=== PATIENT | female | born 1960 | race Two or more races ===

== ENCOUNTER 2017-02-19 11:06 | Inpatient (IN) | payer MEDICAID ==
[~2017-02-19] VITALS: Ht 167.6 cm; Wt 111.6 kg
[~2017-02-19 11:06] MED LIST: ASPI81CH43; DENIES; LISI-646 PO; METF-370 PO; METO25TA5 PO; OMEP20CA74 PO
[2017-02-19] MEDS ORDERED: SODIUM CHLORIDE 0.9% 1,000 ML IV ONE (12:01)
[2017-02-19] MEDS ORDERED: cloNIDine HCL 0.1 MG TAB PO ONE (12:15)
[2017-02-19] MEDS ORDERED: ONDANSETRON HCL 4 MG/2 ML VIAL IV ONE (12:15)
[2017-02-19] MEDS ORDERED: MORPHINE SULFATE 4 MG/ML SYRG IV ONE (12:15)
[2017-02-19] MEDS ORDERED: ASPirin 81 mg TAB PO ONE (12:15)
[2017-02-19 13:24] LABS: Basophils # (auto) 0 uL; Basophils % (auto) 0.1 % (0.0-2.0); Eosinophils # (auto) 0.2 uL; Eosinophils % (auto) 1.3 % (0.0-7.0); Hemoglobin 13.3 g/dL (12.2-16.2); Lymphocytes # (auto) 0.9 uL; Lymphocytes % (auto) 7.3 % (10.0-50.0); Mean Corpuscular Hemoglobin 30.6 pg (28.0-32.0); Mean Corpuscular Hgb Conc. 34.2 g/dL (32.0-36.0); Mean Corpuscular Volume 89.7 fL (80.0-100.0); Mean Platelet Volume 9.1 fL (7.4-10.4); Monocytes # (auto) 0.5 uL; Neutrophils # (auto) 11.3 uL; Neutrophils % (auto) 87.3 % (37.0-80.0); Platelet Count (auto) 212 10^3/uL (140-450); Red Cell Distribution Width 14.1 % (11.6-16.0); White Blood Cell 12.9 10^3/uL (4.4-10.8)
[2017-02-19 13:39] LABS: Albumin 3.7 g/dL (3.4-5.0); BUN/Creatinine Ratio 21.6; Bilirubin, Total 0.6 mg/dL (0.2-1.0); Calcium 8.9 mg/dL (8.5-10.1); Potassium 3.7 mmol/L (3.5-5.1); Total Protein 7.6 g/dL (6.4-8.2)
[2017-02-19 13:40] LABS: INR 0.96 (0.9-1.15); Partial Thromboplastin Time 27.1 sec (22.64-33.71); Prothrombin Time 10.5 sec (9.37-12.3)
[2017-02-19] MEDS ORDERED: ENOXAPARIN SOD 100 MG/1 ML SYRINGE SC ONE (13:45)
[2017-02-19 14:04] LABS: B-Type Natriuretic Peptide 130.55 pg/mL (0-100); Temperature: 23.7 C (20.0-25.0)
[2017-02-19] MEDS ORDERED: cefTRIAXone 1GM/50ML D5W 50 ML IV ONE (14:30)
[2017-02-19] MEDS ORDERED: IOHEXOL 350 MG/ML 100ML IJ ONE (14:36)
[2017-02-19] MEDS: SODIUM CHLORIDE 0.9% 1,000 ML IV SCH (15:22)
[2017-02-19] MEDS ORDERED: DEXTROSE (50%) 50ML SYRG IV PRN (15:30)
[2017-02-19] MEDS ORDERED: LABETALOL HCL 5 MG/ML 4ML SYRINGE IV PRN (15:30)
[2017-02-19] MEDS ORDERED: TEMAZEPAM 15 MG CAP PO PRN (15:30)
[2017-02-19] MEDS ORDERED: LACTULOSE 20Gm/30ML SOLN PO PRN (15:30)
[2017-02-19] MEDS ORDERED: MORPHINE SULF INJ 2 MG/ML SYRINGE 1ML IV PRN (15:30)
[2017-02-19] MEDS ORDERED: ALBUTEROL SULF 2.5 MG/0.5ML(0.5%) NEB SOLN NEB PRN (15:30)
[2017-02-19] MEDS ORDERED: NITROGLYCERIN 0.4 MG SL TAB SL PRN (15:30)
[2017-02-19] MEDS ORDERED: ACETAMINOPHEN 500 MG TAB PO PRN (15:30)
[2017-02-19] MEDS ORDERED: NITROGLYCERIN 0.2MG/HR TOPICAL PATCH TD ONE (15:45)
[2017-02-19] MEDS ORDERED: PANTOPRAZOLE 40 MG TAB PO ONE (15:45)
[2017-02-19] MEDS: HYDROcodone-ACET 5/325MG TAB PO PRN (15:59)
[2017-02-19] MEDS: InsuLIN REG 1unit/0.01ml Soln (100units/ml) SC SCH ×2 (17:00→21:52)
[2017-02-19] MEDS: ACCU-CHEK COMFORT CURVE STRIP VI SCH ×2 (17:07→21:51)
[2017-02-19 18:10] VITALS: BP 163/99
[2017-02-19] MEDS: MORPHINE SULF INJ 2 MG/ML SYRINGE 1ML IV PRN ×2 (18:34→23:26)
[2017-02-19 20:44] LABS: Urine Bilirubin Negative (Negative); Urine Blood Negative /uL (Negative); Urine Color Yellow (Yellow); Urine Glucose Normal (Normal); Urine Ketone TRACE (Negative); Urine Mucus FEW (None Seen); Urine Nitrite Negative (Negative); Urine RBC 8 /hpf (0 - 4); Urine Squamous Epithelial Cell FEW /hpf (<5); Urine Urobilinogen Normal (Negative)
[2017-02-19 21:28] VITALS: BP 163/99
[2017-02-19] MEDS: ATORVASTATIN 20 MG TAB PO SCH (21:50)
[2017-02-19] MEDS: LISINOPRIL 20 MG TAB PO SCH (21:51)
[2017-02-19] MEDS: METOPROLOL TARTRATE 25 MG TAB PO SCH (21:51)
[2017-02-19 22:00] VITALS: BP 149/78
[2017-02-20] MEDS: HYDROcodone-ACET 5/325MG TAB PO PRN ×2 (03:06→16:14)
[2017-02-20] MEDS: MORPHINE SULF INJ 2 MG/ML SYRINGE 1ML IV PRN ×5 (04:30→21:59)
[2017-02-20 05:00] VITALS: BP 144/80
[2017-02-20] MEDS: SODIUM CHLORIDE 0.9% 1,000 ML IV SCH ×3 (05:38→15:16)
[2017-02-20] MEDS: InsuLIN REG 1unit/0.01ml Soln (100units/ml) SC SCH ×4 (06:41→22:00)
[2017-02-20] MEDS: ACCU-CHEK COMFORT CURVE STRIP VI SCH ×4 (06:41→22:07)
[2017-02-20 08:00] VITALS: BP 136/82
[2017-02-20 09:11] VITALS: BP 136/82
[2017-02-20] MEDS ORDERED: NITROGLYCERIN 0.2MG/HR TOPICAL PATCH TD SCH (10:00)
[2017-02-20] MEDS: ASPirin 81 mg TAB PO SCH (10:10)
[2017-02-20] MEDS: ENOXAPARIN SOD 40 MG/0.4 ML SYRINGE SC SCH (10:10)
[2017-02-20] MEDS: METOPROLOL TARTRATE 25 MG TAB PO SCH ×2 (10:11→21:57)
[2017-02-20] MEDS: PANTOPRAZOLE 40 MG TAB PO SCH (10:12)
[2017-02-20] MEDS: LISINOPRIL 20 MG TAB PO SCH ×2 (10:13→21:58)
[2017-02-20 13:00] VITALS: BP 135/77
[2017-02-20 17:08] VITALS: BP 154/86
[2017-02-20] MEDS: LORazepam 0.5 MG TAB PO PRN (21:57)
[2017-02-20] MEDS: ATORVASTATIN 20 MG TAB PO SCH (21:58)
[2017-02-20 22:08] VITALS: BP 160/96
[2017-02-21] VITALS (8 sets, daily range): BP systolic 150–204; BP diastolic 88–106
[2017-02-21] MEDS: MORPHINE SULF INJ 2 MG/ML SYRINGE 1ML IV PRN ×3 (03:03→22:34)
[2017-02-21] MEDS: LABETALOL HCL 5 MG/ML 4ML SYRINGE IV PRN ×3 (05:22→13:25)
[2017-02-21] MEDS: HYDROcodone-ACET 5/325MG TAB PO PRN (05:24)
[2017-02-21] MEDS: ACCU-CHEK COMFORT CURVE STRIP VI SCH ×4 (05:35→22:00)
[2017-02-21] MEDS: InsuLIN REG 1unit/0.01ml Soln (100units/ml) SC SCH ×4 (05:36→22:00)
[2017-02-21] MEDS: PROMETHAZINE HCL 25 MG/ML 1ML IV PRN ×3 (06:03→10:44)
[2017-02-21 07:15] LABS: Basophils # (auto) 0 uL; Basophils % (auto) 0.4 % (0.0-2.0); Eosinophils # (auto) 0.2 uL; Eosinophils % (auto) 3.5 % (0.0-7.0); Hematocrit 34.5 % (36.0-46.0); Hemoglobin 11.8 g/dL (12.2-16.2); Lymphocytes # (auto) 1.3 uL; Mean Corpuscular Hemoglobin 31.1 pg (28.0-32.0); Mean Corpuscular Hgb Conc. 34.3 g/dL (32.0-36.0); Mean Corpuscular Volume 90.9 fL (80.0-100.0); Mean Platelet Volume 9.7 fL (7.4-10.4); Monocytes # (auto) 0.4 uL; Monocytes % (auto) 6.3 % (0.0-12.0); Neutrophils # (auto) 5.1 uL; Neutrophils % (auto) 71.8 % (37.0-80.0); Platelet Count (auto) 177 10^3/uL (140-450); Red Cell Distribution Width 14.6 % (11.6-16.0)
[2017-02-21] MEDS: SODIUM CHLORIDE 0.9% 1,000 ML IV SCH (07:38)
[2017-02-21 07:59] LABS: B-Type Natriuretic Peptide 234.62 pg/mL (0-100); Temperature: 23.5 C (20.0-25.0)
[2017-02-21 08:06] LABS: BUN/Creatinine Ratio 21.7; Calcium 9.2 mg/dL (8.5-10.1); Magnesium 2.2 mg/dL (1.6-2.6); Potassium 4.1 mmol/L (3.5-5.1)
[2017-02-21] MEDS: PANTOPRAZOLE 40 MG TAB PO SCH (10:14)
[2017-02-21] MEDS: ASPirin 81 mg TAB PO SCH (10:14)
[2017-02-21] MEDS: ENOXAPARIN SOD 40 MG/0.4 ML SYRINGE SC SCH (10:14)
[2017-02-21] MEDS: LISINOPRIL 20 MG TAB PO SCH ×2 (10:31→22:33)
[2017-02-21] MEDS: METOPROLOL TARTRATE 25 MG TAB PO SCH ×2 (10:31→22:33)
[2017-02-21] MEDS: TRIAMTERENE/HCTZ 75/50MG TABLET PO SCH (11:42)
[2017-02-21] MEDS: LORazepam 0.5 MG TAB PO PRN (13:25)
[2017-02-21] MEDS ORDERED: DOCUSATE SOD 100 MG CAP PO ONE (14:15)
[2017-02-21] MEDS: cloNIDine HCL 0.1 MG TAB PO SCH ×2 (14:41→22:32)
[2017-02-21] MEDS ORDERED: METOPROLOL TARTRATE 50 MG TAB PO ONE (16:15)
[2017-02-21] MEDS: cloNIDine HCL 0.1 MG TAB PO PRN (18:39)
[2017-02-21] MEDS ORDERED: PRAMIPEXOLE DIHYDROCHLORIDE MO 0.25 MG TAB PO SCH (22:00)
[2017-02-21] MEDS: ATORVASTATIN 20 MG TAB PO SCH (22:31)
[2017-02-21] MEDS: DOCUSATE SOD 100 MG CAP PO SCH (22:32)
[2017-02-22] VITALS (8 sets, daily range): BP systolic 124–164; BP diastolic 74–84
[2017-02-22] MEDS: MORPHINE SULF INJ 2 MG/ML SYRINGE 1ML IV PRN ×4 (03:50→19:08)
[2017-02-22] MEDS: ACCU-CHEK COMFORT CURVE STRIP VI SCH ×4 (06:15→22:22)
[2017-02-22] MEDS: cloNIDine HCL 0.1 MG TAB PO SCH ×3 (06:15→22:21)
[2017-02-22 06:28] LABS: Potassium 3.9 mmol/L (3.5-5.1)
[2017-02-22 06:32] LABS: BUN/Creatinine Ratio 14.4; Calcium 9.5 mg/dL (8.5-10.1)
[2017-02-22] MEDS: InsuLIN REG 1unit/0.01ml Soln (100units/ml) SC SCH ×4 (06:33→22:22)
[2017-02-22] MEDS: ASPirin 81 mg TAB PO SCH (09:36)
[2017-02-22] MEDS: ENOXAPARIN SOD 40 MG/0.4 ML SYRINGE SC SCH (09:36)
[2017-02-22] MEDS: DOCUSATE SOD 100 MG CAP PO SCH ×2 (09:36→22:20)
[2017-02-22] MEDS: PANTOPRAZOLE 40 MG TAB PO SCH (09:36)
[2017-02-22] MEDS: TRIAMTERENE/HCTZ 75/50MG TABLET PO SCH (09:37)
[2017-02-22] MEDS: METOPROLOL TARTRATE 25 MG TAB PO SCH ×2 (09:38→22:22)
[2017-02-22] MEDS: LISINOPRIL 20 MG TAB PO SCH ×2 (09:39→22:21)
[2017-02-22] MEDS ORDERED: BISACODYL 10 MG RECT SUPP PR ONE (12:45)
[2017-02-22] MEDS: ATORVASTATIN 20 MG TAB PO SCH (22:20)
[2017-02-23] VITALS (7 sets, daily range): BP systolic 118–140; BP diastolic 69–84
[2017-02-23] MEDS: MORPHINE SULF INJ 2 MG/ML SYRINGE 1ML IV PRN ×5 (00:21→23:18)
[2017-02-23] MEDS: cloNIDine HCL 0.1 MG TAB PO SCH ×3 (06:25→22:06)
[2017-02-23] MEDS: ACCU-CHEK COMFORT CURVE STRIP VI SCH ×4 (06:25→22:06)
[2017-02-23] MEDS: InsuLIN REG 1unit/0.01ml Soln (100units/ml) SC SCH ×4 (06:25→22:07)
[2017-02-23] MEDS: DOCUSATE SOD 100 MG CAP PO SCH ×2 (09:47→22:05)
[2017-02-23] MEDS: PANTOPRAZOLE 40 MG TAB PO SCH (09:48)
[2017-02-23] MEDS: ASPirin 81 mg TAB PO SCH (09:48)
[2017-02-23] MEDS: ENOXAPARIN SOD 40 MG/0.4 ML SYRINGE SC SCH (09:48)
[2017-02-23] MEDS: METOPROLOL TARTRATE 25 MG TAB PO SCH ×2 (09:48→22:06)
[2017-02-23] MEDS: LISINOPRIL 20 MG TAB PO SCH ×2 (09:49→22:05)
[2017-02-23] MEDS: TRIAMTERENE/HCTZ 75/50MG TABLET PO SCH (09:50)
[2017-02-23] MEDS ORDERED: MEROPENEM 1GM IVPB 100 ML IV ONE (12:15)
[2017-02-23] MEDS ORDERED: GASTROGRAFIN 120 ML SOL ONE (12:37)
[2017-02-23] MEDS: ERTAPENEM 1GM IN NS 50 ML IV SCH (13:44)
[2017-02-23] MEDS: HYDROcodone-ACET 5/325MG TAB PO PRN (20:28)
[2017-02-23] MEDS ORDERED: MEROPENEM 1GM IVPB 100 ML IV SCH (22:00)
[2017-02-23] MEDS: ATORVASTATIN 20 MG TAB PO SCH (22:05)
[2017-02-24 05:40] VITALS: BP 121/76
[2017-02-24 05:59] LABS: Basophils # (auto) 0 uL; Basophils % (auto) 0.3 % (0.0-2.0); Eosinophils # (auto) 0.2 uL; Eosinophils % (auto) 4.3 % (0.0-7.0); Hematocrit 31.8 % (36.0-46.0); Hemoglobin 10.9 g/dL (12.2-16.2); Lymphocytes # (auto) 1.1 uL; Lymphocytes % (auto) 20.7 % (10.0-50.0); Mean Corpuscular Hemoglobin 31.4 pg (28.0-32.0); Mean Corpuscular Hgb Conc. 34.5 g/dL (32.0-36.0); Mean Corpuscular Volume 90.9 fL (80.0-100.0); Mean Platelet Volume 9.3 fL (7.4-10.4); Monocytes # (auto) 0.7 uL; Monocytes % (auto) 12.1 % (0.0-12.0); Neutrophils # (auto) 3.4 uL; Neutrophils % (auto) 62.6 % (37.0-80.0); Platelet Count (auto) 216 10^3/uL (140-450); Red Cell Distribution Width 13.9 % (11.6-16.0); White Blood Cell 5.5 10^3/uL (4.4-10.8)
[2017-02-24] MEDS: cloNIDine HCL 0.1 MG TAB PO SCH ×3 (06:14→22:31)
[2017-02-24] MEDS: ACCU-CHEK COMFORT CURVE STRIP VI SCH ×4 (06:14→22:00)
[2017-02-24] MEDS: MORPHINE SULF INJ 2 MG/ML SYRINGE 1ML IV PRN ×6 (06:14→22:30)
[2017-02-24] MEDS: InsuLIN REG 1unit/0.01ml Soln (100units/ml) SC SCH ×4 (06:15→22:00)
[2017-02-24 06:18] LABS: BUN/Creatinine Ratio 18.3; Calcium 8.9 mg/dL (8.5-10.1); Magnesium 1.9 mg/dL (1.6-2.6); Potassium 4.3 mmol/L (3.5-5.1)
[2017-02-24 08:00] VITALS: BP 145/85
[2017-02-24 09:00] VITALS: BP 145/85
[2017-02-24] MEDS: TRIAMTERENE/HCTZ 75/50MG TABLET PO SCH (10:31)
[2017-02-24] MEDS: METOPROLOL TARTRATE 25 MG TAB PO SCH ×2 (10:33→22:32)
[2017-02-24] MEDS: LISINOPRIL 20 MG TAB PO SCH ×2 (10:33→22:32)
[2017-02-24] MEDS: PANTOPRAZOLE 40 MG TAB PO SCH (10:34)
[2017-02-24] MEDS: DOCUSATE SOD 100 MG CAP PO SCH ×2 (10:34→22:00)
[2017-02-24] MEDS: ASPirin 81 mg TAB PO SCH (10:34)
[2017-02-24] MEDS: ENOXAPARIN SOD 40 MG/0.4 ML SYRINGE SC SCH (10:34)
[2017-02-24] MEDS ORDERED: MAGNESIUM SULFATE 1GM/100ML 100 ML IV ONE (10:45)
[2017-02-24] MEDS: SODIUM CHLORIDE 0.9% 1,000 ML IV SCH (10:45)
[2017-02-24 13:00] VITALS: BP 128/69
[2017-02-24] MEDS: ERTAPENEM 1GM IN NS 50 ML IV SCH (13:00)
[2017-02-24 22:00] VITALS: BP 156/86
[2017-02-24] MEDS: ATORVASTATIN 20 MG TAB PO SCH (22:30)
[2017-02-25] MEDS: SODIUM CHLORIDE 0.9% 1,000 ML IV SCH (03:28)
[2017-02-25] MEDS: MORPHINE SULF INJ 2 MG/ML SYRINGE 1ML IV PRN ×4 (03:28→18:55)
[2017-02-25 05:00] VITALS: BP 161/90
[2017-02-25] MEDS: ACCU-CHEK COMFORT CURVE STRIP VI SCH ×4 (05:07→21:46)
[2017-02-25] MEDS: cloNIDine HCL 0.1 MG TAB PO SCH ×3 (05:52→21:37)
[2017-02-25] MEDS: InsuLIN REG 1unit/0.01ml Soln (100units/ml) SC SCH ×4 (05:53→21:46)
[2017-02-25] MEDS: HYDROcodone-ACET 10/325MG TAB PO PRN ×2 (05:53→21:35)
[2017-02-25 06:01] LABS: Hematocrit 34.3 % (36.0-46.0); Hemoglobin 11.8 g/dL (12.2-16.2)
[2017-02-25 06:16] LABS: BUN/Creatinine Ratio 23.8; Calcium 9.1 mg/dL (8.5-10.1); Potassium 4.2 mmol/L (3.5-5.1)
[2017-02-25 07:00] VITALS: BP 165/92
[2017-02-25] MEDS: PANTOPRAZOLE 40 MG TAB PO SCH (09:45)
[2017-02-25] MEDS: LISINOPRIL 20 MG TAB PO SCH ×2 (09:46→21:36)
[2017-02-25] MEDS: ASPirin 81 mg TAB PO SCH (09:46)
[2017-02-25] MEDS: METOPROLOL TARTRATE 25 MG TAB PO SCH ×2 (09:46→21:35)
[2017-02-25] MEDS: DOCUSATE SOD 100 MG CAP PO SCH ×2 (09:47→09:52)
[2017-02-25] MEDS: ENOXAPARIN SOD 40 MG/0.4 ML SYRINGE SC SCH (09:49)
[2017-02-25 12:04] VITALS: BP 158/70
[2017-02-25] MEDS: ERTAPENEM 1GM IN NS 50 ML IV SCH (13:45)
[2017-02-25 16:40] VITALS: BP 155/84
[2017-02-25] MEDS: ATORVASTATIN 20 MG TAB PO SCH (21:36)
[2017-02-25 22:00] VITALS: BP 186/89
[2017-02-26 05:00] VITALS: BP 181/96
[2017-02-26] MEDS: cloNIDine HCL 0.1 MG TAB PO SCH ×3 (05:19→21:54)
[2017-02-26] MEDS: InsuLIN REG 1unit/0.01ml Soln (100units/ml) SC SCH ×4 (05:20→22:00)
[2017-02-26 06:17] LABS: Calcium 9.4 mg/dL (8.5-10.1); Magnesium 2.2 mg/dL (1.6-2.6); Potassium 3.8 mmol/L (3.5-5.1)
[2017-02-26 06:19] LABS: BUN/Creatinine Ratio 23.9
[2017-02-26] MEDS: ACCU-CHEK COMFORT CURVE STRIP VI SCH ×4 (07:00→21:55)
[2017-02-26 08:00] VITALS: BP 185/103
[2017-02-26] MEDS: DOCUSATE SOD 100 MG CAP PO SCH ×2 (09:48→21:54)
[2017-02-26 09:49] VITALS: BP 185/103
[2017-02-26] MEDS: ASPirin 81 mg TAB PO SCH (09:50)
[2017-02-26] MEDS: ENOXAPARIN SOD 40 MG/0.4 ML SYRINGE SC SCH (09:50)
[2017-02-26] MEDS: PANTOPRAZOLE 40 MG TAB PO SCH (09:50)
[2017-02-26] MEDS: LISINOPRIL 20 MG TAB PO SCH ×2 (09:52→21:55)
[2017-02-26] MEDS: METOPROLOL TARTRATE 25 MG TAB PO SCH ×2 (09:53→21:55)
[2017-02-26] MEDS ORDERED: PANT40T PO (10:34)
[2017-02-26] MEDS ORDERED: CLO01T PO (10:34)
[2017-02-26] MEDS ORDERED: LISI-646 PO (10:34)
[2017-02-26] MEDS ORDERED: SODIUM CHLORIDE 0.9% 1,000 ML IV SCH (10:45)
[2017-02-26] MEDS ORDERED: MET25T PO (10:46)
[2017-02-26] MEDS ORDERED: LIDOCAINE 1% HCL (LOCAL ANESTH.) INJ 20ML MDV ID ONE (11:15)
[2017-02-26] MEDS: ERTAPENEM 1GM IN NS 50 ML IV SCH (13:22)
[2017-02-26] MEDS: HYDROcodone-ACET 10/325MG TAB PO PRN ×2 (13:23→20:44)
[2017-02-26 17:44] VITALS: BP 175/96
[2017-02-26 20:00] VITALS: BP 183/90
[2017-02-26] MEDS: SODIUM CHLOR 0.9% PF (SALINE LOCK) 10ML VIAL IV SCH (21:53)
[2017-02-26 22:00] VITALS: BP 183/90
[2017-02-27] VITALS (9 sets, daily range): BP systolic 155–204; BP diastolic 73–109
[2017-02-27] MEDS: cloNIDine HCL 0.1 MG TAB PO PRN ×3 (00:11→07:30)
[2017-02-27] MEDS ORDERED: hydrALAZINE HCL 20 MG/ML VL IV ONE (03:15)
[2017-02-27] MEDS: cloNIDine HCL 0.1 MG TAB PO SCH ×3 (06:01→21:40)
[2017-02-27] MEDS: ACCU-CHEK COMFORT CURVE STRIP VI SCH ×4 (06:44→21:41)
[2017-02-27] MEDS: InsuLIN REG 1unit/0.01ml Soln (100units/ml) SC SCH ×4 (06:45→22:35)
[2017-02-27] MEDS ORDERED: hydrALAZINE HCL 25 MG TAB PO PRN (09:00)
[2017-02-27] MEDS: HYDROcodone-ACET 10/325MG TAB PO PRN ×2 (09:22→17:20)
[2017-02-27] MEDS: METOPROLOL TARTRATE 25 MG TAB PO SCH ×2 (10:00→21:41)
[2017-02-27] MEDS: DOCUSATE SOD 100 MG CAP PO SCH ×2 (10:00→21:40)
[2017-02-27] MEDS: ENOXAPARIN SOD 40 MG/0.4 ML SYRINGE SC SCH (10:02)
[2017-02-27] MEDS: ASPirin 81 mg TAB PO SCH (10:05)
[2017-02-27] MEDS: PANTOPRAZOLE 40 MG TAB PO SCH (10:05)
[2017-02-27] MEDS: LISINOPRIL 20 MG TAB PO SCH ×2 (10:06→21:40)
[2017-02-27] MEDS: SODIUM CHLOR 0.9% PF (SALINE LOCK) 10ML VIAL IV SCH ×2 (10:07→21:39)
[2017-02-27] MEDS: ERTAPENEM 1GM IN NS 50 ML IV SCH (13:52)
[2017-02-27] MEDS ORDERED: amLODIPine BESYLATE 5 MG TAB PO ONE (15:00)
[2017-02-27] MEDS: KETOROLAC TROMETH 30 MG/ML 1ML VIAL IV PRN (16:20)
[2017-02-27] MEDS: hydrALAZINE HCL 25 MG TAB PO SCH (21:39)
[2017-02-28] MEDS: HYDROcodone-ACET 10/325MG TAB PO PRN ×2 (04:10→10:38)
[2017-02-28 05:07] VITALS: BP 168/85
[2017-02-28] MEDS: cloNIDine HCL 0.1 MG TAB PO SCH ×3 (05:40→23:07)
[2017-02-28] MEDS: InsuLIN REG 1unit/0.01ml Soln (100units/ml) SC SCH ×4 (06:34→22:00)
[2017-02-28] MEDS: ACCU-CHEK COMFORT CURVE STRIP VI SCH ×4 (06:34→22:00)
[2017-02-28 08:00] VITALS: BP 117/63
[2017-02-28 09:30] VITALS: BP 117/63
[2017-02-28] MEDS: METOPROLOL TARTRATE 25 MG TAB PO SCH ×2 (10:00→22:00)
[2017-02-28] MEDS: DOCUSATE SOD 100 MG CAP PO SCH ×2 (10:00→23:07)
[2017-02-28] MEDS: SODIUM CHLOR 0.9% PF (SALINE LOCK) 10ML VIAL IV SCH ×2 (10:32→23:05)
[2017-02-28] MEDS: LISINOPRIL 20 MG TAB PO SCH ×2 (10:34→23:08)
[2017-02-28] MEDS: hydrALAZINE HCL 25 MG TAB PO SCH ×2 (10:35→23:06)
[2017-02-28] MEDS: ASPirin 81 mg TAB PO SCH (10:36)
[2017-02-28] MEDS: amLODIPine BESYLATE 5 MG TAB PO SCH (10:37)
[2017-02-28] MEDS: PANTOPRAZOLE 40 MG TAB PO SCH (10:38)
[2017-02-28] MEDS: ENOXAPARIN SOD 40 MG/0.4 ML SYRINGE SC SCH (10:42)
[2017-02-28 12:30] VITALS: BP 165/88
[2017-02-28 13:30] VITALS: BP 168/77
[2017-02-28] MEDS: ERTAPENEM 1GM IN NS 50 ML IV SCH (14:35)
[2017-02-28 17:00] VITALS: BP 163/84
[2017-02-28] MEDS: cloNIDine HCL 0.1 MG TAB PO PRN (17:26)
[2017-02-28] MEDS: KETOROLAC TROMETH 30 MG/ML 1ML VIAL IV PRN (17:26)
[2017-03-01 00:39] VITALS: BP 177/86
[2017-03-01 05:23] VITALS: BP 159/89
[2017-03-01] MEDS: cloNIDine HCL 0.1 MG TAB PO SCH ×3 (05:31→22:01)
[2017-03-01] MEDS: KETOROLAC TROMETH 30 MG/ML 1ML VIAL IV PRN ×2 (05:55→20:35)
[2017-03-01] MEDS: InsuLIN REG 1unit/0.01ml Soln (100units/ml) SC SCH ×4 (06:01→21:10)
[2017-03-01] MEDS: ACCU-CHEK COMFORT CURVE STRIP VI SCH ×4 (06:01→21:10)
[2017-03-01 08:00] VITALS: BP 155/88
[2017-03-01 09:00] VITALS: BP 157/81
[2017-03-01] MEDS: amLODIPine BESYLATE 5 MG TAB PO SCH (09:53)
[2017-03-01] MEDS: METOPROLOL TARTRATE 25 MG TAB PO SCH ×2 (09:53→22:00)
[2017-03-01] MEDS: DOCUSATE SOD 100 MG CAP PO SCH ×2 (09:54→22:01)
[2017-03-01] MEDS: hydrALAZINE HCL 25 MG TAB PO SCH ×2 (09:54→22:00)
[2017-03-01] MEDS: PANTOPRAZOLE 40 MG TAB PO SCH (09:54)
[2017-03-01] MEDS: HYDROcodone-ACET 10/325MG TAB PO PRN (09:54)
[2017-03-01] MEDS: ASPirin 81 mg TAB PO SCH (09:55)
[2017-03-01] MEDS: ENOXAPARIN SOD 40 MG/0.4 ML SYRINGE SC SCH (09:55)
[2017-03-01] MEDS: LISINOPRIL 20 MG TAB PO SCH ×2 (09:55→22:01)
[2017-03-01] MEDS: SODIUM CHLOR 0.9% PF (SALINE LOCK) 10ML VIAL IV SCH ×2 (10:00→22:00)
[2017-03-01] MEDS ORDERED: AML5T PO (10:51)
[2017-03-01] MEDS ORDERED: HYDR-2651 PO (10:51)
[2017-03-01] MEDS ORDERED: TEMAZEPAM 15 MG CAP PO PRN (11:00)
[2017-03-01] MEDS ORDERED: LORazepam 0.5 MG TAB PO PRN (11:00)
[2017-03-01] MEDS: ERTAPENEM 1GM IN NS 50 ML IV SCH (15:01)
[2017-03-01 17:29] VITALS: BP 146/76
[2017-03-01 22:29] VITALS: BP 178/90
[2017-03-02] MEDS: HYDROcodone-ACET 10/325MG TAB PO PRN ×2 (05:16→11:51)
[2017-03-02 05:31] VITALS: BP 162/86
[2017-03-02] MEDS: cloNIDine HCL 0.1 MG TAB PO SCH ×2 (05:37→14:28)
[2017-03-02] MEDS: InsuLIN REG 1unit/0.01ml Soln (100units/ml) SC SCH ×2 (06:13→11:39)
[2017-03-02] MEDS: ACCU-CHEK COMFORT CURVE STRIP VI SCH ×2 (06:14→11:38)
[2017-03-02 08:00] VITALS: BP_SYST 161; BP_DIAS 81; BP_DIAS 82
[2017-03-02] MEDS: SODIUM CHLOR 0.9% PF (SALINE LOCK) 10ML VIAL IV SCH (10:00)
[2017-03-02] MEDS ORDERED: ENOXAPARIN SOD 40 MG/0.4 ML SYRINGE SC SCH (10:00)
[2017-03-02] MEDS: LISINOPRIL 20 MG TAB PO SCH (11:00)
[2017-03-02] MEDS: hydrALAZINE HCL 25 MG TAB PO SCH (11:00)
[2017-03-02] MEDS: METOPROLOL TARTRATE 25 MG TAB PO SCH (11:01)
[2017-03-02] MEDS: PANTOPRAZOLE 40 MG TAB PO SCH (11:01)
[2017-03-02] MEDS: amLODIPine BESYLATE 5 MG TAB PO SCH (11:01)
[2017-03-02] MEDS: ASPirin 81 mg TAB PO SCH (11:02)
[2017-03-02] MEDS: DOCUSATE SOD 100 MG CAP PO SCH (11:02)
[2017-03-02 13:00] VITALS: BP 158/81
[2017-03-02] MEDS: ERTAPENEM 1GM IN NS 50 ML IV SCH (14:26)
== END 2017-03-02 15:45 | DRG 468 ==
LOC: EDBD 11:06 → ER 11:11 → TELE 11:12 → TELE-EAST 18:21
PROVIDERS: ADMIT Internal Medicine; ATTEND Internal Medicine
DX: I12.9 Hypertensive chronic kidney disease with stage 1 through stage 4 chronic kidney disease, or unspecified chronic kidney disease (principal); N17.0 Acute kidney failure with tubular necrosis; K56.60 Unspecified intestinal obstruction; E11.22 Type 2 diabetes mellitus with diabetic chronic kidney disease; E11.42 Type 2 diabetes mellitus with diabetic polyneuropathy; S22.42XA Multiple fractures of ribs, left side, initial encounter for closed fracture; N18.3 Chronic kidney disease, stage 3 (moderate); N39.0 Urinary tract infection, site not specified; R55 Syncope and collapse; J98.11 Atelectasis; S09.90XA Unspecified injury of head, initial encounter; R91.8 Other nonspecific abnormal finding of lung field; B96.20 Unspecified Escherichia coli [E. coli] as the cause of diseases classified elsewhere; I70.8 Atherosclerosis of other arteries; W19.XXXA Unspecified fall, initial encounter; G25.81 Restless legs syndrome; E86.0 Dehydration; E66.01 Morbid (severe) obesity due to excess calories; G47.00 Insomnia, unspecified; G57.11 Meralgia paresthetica, right lower limb; I25.10 Atherosclerotic heart disease of native coronary artery without angina pectoris; Z16.12 Extended spectrum beta lactamase (ESBL) resistance; Z68.39 Body mass index [BMI] 39.0-39.9, adult; Z83.3 Family history of diabetes mellitus; Z82.49 Family history of ischemic heart disease and other diseases of the circulatory system; Z85.038 Personal history of other malignant neoplasm of large intestine; Z90.710 Acquired absence of both cervix and uterus; Z81.1 Family history of alcohol abuse and dependence; Z71.89 Other specified counseling
CPT/HCPCS: 36415; 36569; 70450; 71010; 71020; 71250; 71275; 73060; 74176; 74250; 80048; 80053; 80061; 81001; 82550; 82607; 82728; 82962; 83036; 83540; 83550; 83735; 83880; 84443; 84484; 85014; 85018; 85025; 85379; 85610; 85730; 87086; 87088; 87186; 87493; 93005; 93306; 93886; 95819; 96361; 96365; 96372; 96375; 97110; 97116; 97163; 97530; 99291; J0696; J1335; J1815; J1885; J2185; J2405; J3490

== ENCOUNTER 2018-06-19 16:50 | Inpatient (IN) | payer MEDICAID ==
[~2018-06-19] VITALS: Ht 165.1 cm; Wt 97.7 kg
[~2018-06-19 16:50] MED LIST changes: +AML5T PO; +AMLO10TA12 PO; +ASP81EC PO; +ATOR20TA50 PO; +CAR125T PO; +CLO01T PO; -DENIES; +HCTZ25T PO; -METO25TA5 PO; +NITR100C44 PO; -OMEP20CA74 PO; +POTA8TAB2 PO
[2018-06-19 17:31] LABS: Basophils # (auto) 0.1 uL; Basophils % (auto) 0.6 % (0.0-2.0); Eosinophils # (auto) 0.3 uL; Eosinophils % (auto) 2.5 % (0.0-7.0); Hemoglobin 13.9 g/dL (12.2-16.2); Lymphocytes # (auto) 1.5 uL; Lymphocytes % (auto) 11.7 % (10.0-50.0); Mean Corpuscular Hemoglobin 30.9 pg (28.0-32.0); Mean Corpuscular Hgb Conc. 34.8 g/dL (32.0-36.0); Mean Corpuscular Volume 88.8 fL (80.0-100.0); Monocytes # (auto) 0.6 uL; Monocytes % (auto) 5.1 % (0.0-12.0); Neutrophils # (auto) 10.1 uL; Neutrophils % (auto) 80.1 % (37.0-80.0); Nucleated Red Blood Cells % 0.1 %; Platelet Count (auto) 158 10^3/uL (140-450); Red Cell Distribution Width 12.8 % (11.8-14.3); White Blood Cell 12.6 10^3/uL (4.4-10.8)
[2018-06-19 17:55] LABS: Albumin 3.8 g/dL (3.4-5.0); BUN/Creatinine Ratio 13.9; Bilirubin, Total 0.8 mg/dL (0.2-1.0); Calcium 8.5 mg/dL (8.5-10.1); Magnesium 2.2 mg/dL (1.6-2.6); Potassium 4.2 mmol/L (3.5-5.1); Total Protein 7.6 g/dL (6.4-8.2)
[2018-06-19 18:27] LABS: Urine Bacteria NONE SEEN /hpf (None Seen); Urine Blood Negative /uL (Negative); Urine Mucus FEW (None Seen); Urine Specific Gravity 1.006 (1.001-1.035); Urine WBC <1 /hpf (0 - 5)
[2018-06-19] MEDS ORDERED: MORPHINE SULFATE 4 MG/ML SYR/VIAL IV ONE (19:30)
[2018-06-19] MEDS ORDERED: ONDANSETRON HCL 4 MG/2 ML VIAL IV ONE (19:30)
[2018-06-19] MEDS ORDERED: ASPirin 81 mg TAB PO ONE (19:30)
[2018-06-19 20:39] LABS: INR 0.9 (0.9-1.15); Partial Thromboplastin Time 28.1 sec (23.78-33.04); Prothrombin Time 9.7 sec (9.27-12.13)
[2018-06-20] MEDS ORDERED: DEXTROSE (50%) 50ML SYRG IV PRN (03:15)
[2018-06-20] MEDS ORDERED: ONDANSETRON HCL 4 MG/2 ML VIAL IV PRN (03:15)
[2018-06-20] MEDS ORDERED: NITROGLYCERIN 0.4 MG SL TAB SL PRN (04:30)
[2018-06-20] MEDS ORDERED: MORPHINE SULFATE 4 MG/ML SYR/VIAL IV PRN (04:30)
[2018-06-20] MEDS: InsuLIN REG 1unit/0.01ml Soln (100units/ml) SC SCH ×4 (07:02→21:52)
[2018-06-20] MEDS: ACCU-CHEK COMFORT CURVE STRIP VI SCH ×4 (07:03→21:44)
[2018-06-20] MEDS: CARVEDILOL 12.5 MG TAB PO SCH ×2 (08:16→17:45)
[2018-06-20] MEDS: ISOSORBIDE MONONITRATE 60 MG TAB PO SCH (08:17)
[2018-06-20] MEDS: cloNIDine HCL 0.1 MG TAB PO SCH ×2 (08:17→21:44)
[2018-06-20 09:27] VITALS: BP 110/71
[2018-06-20] MEDS ORDERED: ASPirin-EC 325mg tab PO SCH (10:00)
[2018-06-20 13:06] VITALS: BP 125/69
[2018-06-20 16:58] VITALS: BP 129/77
[2018-06-20 19:22] LABS: Albumin 3.1 g/dL (3.4-5.0); Bilirubin, Total 0.3 mg/dL (0.2-1.0); Calcium 8.6 mg/dL (8.5-10.1); Potassium 4.2 mmol/L (3.5-5.1); Total Protein 6.8 g/dL (6.4-8.2)
[2018-06-20 19:26] LABS: Alcohol, Urine < 3.0 mg/dL (0-5); Amphetamine Screen, Urine NEGATIVE (NEGATIVE); Barbiturate Scree,Urine NEGATIVE (NEGATIVE); Benzodiazephine Screen, Urine NEGATIVE (NEGATIVE); Cannabinoid Screen, Urine NEGATIVE (NEGATIVE); Cocaine Screen, Urine NEGATIVE (NEGATIVE); Opiate Scree,Urine NEGATIVE (NEGATIVE); Phencyclidine Screen, Urine NEGATIVE (NEGATIVE)
[2018-06-20] MEDS: ACETAMINOPHEN 500 MG TAB PO PRN (19:47)
[2018-06-20 20:00] VITALS: BP 159/80
[2018-06-20] MEDS: ATORVASTATIN 20 MG TAB PO SCH (21:43)
[2018-06-20] MEDS ORDERED: ATORVASTATIN 20 MG TAB PO SCH (22:00)
[2018-06-20 22:13] VITALS: BP 159/80
[2018-06-21 05:32] VITALS: BP 149/84
[2018-06-21] MEDS: ACCU-CHEK COMFORT CURVE STRIP VI SCH ×4 (06:29→21:51)
[2018-06-21] MEDS: InsuLIN REG 1unit/0.01ml Soln (100units/ml) SC SCH ×4 (06:30→21:50)
[2018-06-21] MEDS: ACETAMINOPHEN 500 MG TAB PO PRN (06:58)
[2018-06-21 07:04] LABS: Basophils # (auto) 0 uL; Basophils % (auto) 0.5 % (0.0-2.0); Eosinophils # (auto) 0.3 uL; Hematocrit 38.8 % (36.0-46.0); Hemoglobin 13.4 g/dL (12.2-16.2); Lymphocytes # (auto) 1.5 uL; Lymphocytes % (auto) 15.7 % (10.0-50.0); Mean Corpuscular Hemoglobin 30.9 pg (28.0-32.0); Mean Corpuscular Hgb Conc. 34.6 g/dL (32.0-36.0); Mean Corpuscular Volume 89.2 fL (80.0-100.0); Monocytes # (auto) 0.6 uL; Monocytes % (auto) 6.9 % (0.0-12.0); Neutrophils # (auto) 6.9 uL; Neutrophils % (auto) 73.9 % (37.0-80.0); Nucleated Red Blood Cells % 0.1 %; Platelet Count (auto) 157 10^3/uL (140-450); Red Blood Cells 4.35 10^6/uL (4.0-5.20); White Blood Cell 9.4 10^3/uL (4.4-10.8)
[2018-06-21 07:21] LABS: BUN/Creatinine Ratio 18.5; Calcium 9.2 mg/dL (8.5-10.1); Potassium 4.4 mmol/L (3.5-5.1)
[2018-06-21] MEDS: CARVEDILOL 12.5 MG TAB PO SCH ×2 (08:25→17:25)
[2018-06-21 08:55] VITALS: BP 163/83
[2018-06-21] MEDS: amLODIPine BESYLATE 5 MG TAB PO SCH (09:53)
[2018-06-21] MEDS: ISOSORBIDE MONONITRATE 60 MG TAB PO SCH (09:53)
[2018-06-21] MEDS: ASPirin-EC 81 mg tab PO SCH (09:53)
[2018-06-21] MEDS: cloNIDine HCL 0.1 MG TAB PO SCH ×2 (09:54→21:50)
[2018-06-21] MEDS ORDERED: INSULIN LANTUS (GLARGINE) 1 /0.01ml (100units/ml) SC ONE (11:30)
[2018-06-21 12:47] VITALS: BP 128/74
[2018-06-21] MEDS ORDERED: BISACODYL 5 MG EC TAB PO ONE (13:30)
[2018-06-21 17:00] VITALS: BP 151/71
[2018-06-21] MEDS: ATORVASTATIN 20 MG TAB PO SCH (21:50)
[2018-06-21] MEDS: INSULIN LANTUS (GLARGINE) 1 /0.01ml (100units/ml) SC SCH (21:51)
[2018-06-21 22:00] VITALS: BP 150/80
[2018-06-22 05:00] VITALS: BP 155/85
[2018-06-22] MEDS: ACETAMINOPHEN 500 MG TAB PO PRN (05:53)
[2018-06-22 06:09] LABS: BUN/Creatinine Ratio 18.7; Calcium 9.3 mg/dL (8.5-10.1); Potassium 4.4 mmol/L (3.5-5.1)
[2018-06-22] MEDS: InsuLIN REG 1unit/0.01ml Soln (100units/ml) SC SCH ×2 (06:22→11:52)
[2018-06-22] MEDS: ACCU-CHEK COMFORT CURVE STRIP VI SCH ×2 (06:23→11:52)
[2018-06-22] MEDS: INSULIN LANTUS (GLARGINE) 1 /0.01ml (100units/ml) SC SCH (06:23)
[2018-06-22 09:00] VITALS: BP 160/89
[2018-06-22] MEDS: CARVEDILOL 12.5 MG TAB PO SCH ×2 (09:05→10:05)
[2018-06-22] MEDS ORDERED: hydrALAZINE HCL 25 MG TAB PO SCH (10:00)
[2018-06-22] MEDS: ISOSORBIDE MONONITRATE 60 MG TAB PO SCH (10:58)
[2018-06-22] MEDS: ASPirin-EC 81 mg tab PO SCH (10:58)
[2018-06-22] MEDS: amLODIPine BESYLATE 5 MG TAB PO SCH (10:59)
[2018-06-22 13:00] VITALS: BP 152/82
[2018-06-22] MEDS ORDERED: cloNIDine HCL 0.1 MG TAB PO SCH (14:00)
== END 2018-06-22 14:45 | disposition home or self-care (01) | DRG 199 ==
LOC: ER 16:50 → EDBD 16:50 → TELE 16:51 → TELE-WESTW 06-20 08:48
PROVIDERS: ADMIT Nurse Practitioner Family; ATTEND Internal Medicine
DX: I16.1 Hypertensive emergency (principal); E11.21 Type 2 diabetes mellitus with diabetic nephropathy; I24.9 Acute ischemic heart disease, unspecified; E87.1 Hypo-osmolality and hyponatremia; E11.65 Type 2 diabetes mellitus with hyperglycemia; E11.22 Type 2 diabetes mellitus with diabetic chronic kidney disease; I43 Cardiomyopathy in diseases classified elsewhere; I25.119 Atherosclerotic heart disease of native coronary artery with unspecified angina pectoris; I13.10 Hypertensive heart and chronic kidney disease without heart failure, with stage 1 through stage 4 chronic kidney disease, or unspecified chronic kidney disease; N18.3 Chronic kidney disease, stage 3 (moderate); F41.9 Anxiety disorder, unspecified; E66.9 Obesity, unspecified; Z68.35 Body mass index [BMI] 35.0-35.9, adult; Z90.49 Acquired absence of other specified parts of digestive tract; Z79.84 Long term (current) use of oral hypoglycemic drugs; Z82.49 Family history of ischemic heart disease and other diseases of the circulatory system; Z85.038 Personal history of other malignant neoplasm of large intestine; Z90.710 Acquired absence of both cervix and uterus; Z95.5 Presence of coronary angioplasty implant and graft; Z83.3 Family history of diabetes mellitus; I25.2 Old myocardial infarction
CPT/HCPCS: 36415; 70450; 71045; 80048; 80053; 80307; 81001; 82962; 83036; 83735; 83880; 84443; 84484; 85025; 85610; 85730; 87081; 93005; 93306; 94761; J1815

== ENCOUNTER 2020-07-19 14:38 | Emergency (ER) | payer MEDICAID ==
[~2020-07-19] VITALS: Ht 162.6 cm; Wt 81.6 kg
[~2020-07-19 14:38] MED LIST changes: -AMLO10TA12 PO; -ASP81EC PO; +ASPI-394 PO; -ASPI81CH43; -HCTZ25T PO; -LISI-646 PO; -METF-370 PO; -NITR100C44 PO; -POTA8TAB2 PO
[2020-07-19] MEDS ORDERED: KETOROLAC TROMETH 30 MG/ML 1ML VIAL IV ONE (15:00)
[2020-07-19] MEDS ORDERED: NIFEdipine 10 MG CAP PO ONE (16:45)
[2020-07-19] MEDS ORDERED: CARVEDILOL 12.5 MG TAB PO ONE (16:45)
[2020-07-19 17:48] VITALS: BP 169/93
== END 2020-07-19 17:54 | disposition home or self-care (01) ==
LOC: EDBD 14:38 → ER 14:38
DX: S16.1XXA Strain of muscle, fascia and tendon at neck level, initial encounter (principal); S60.221A Contusion of right hand, initial encounter; S80.01XA Contusion of right knee, initial encounter; E11.9 Type 2 diabetes mellitus without complications; I10 Essential (primary) hypertension; Z90.49 Acquired absence of other specified parts of digestive tract; Z90.710 Acquired absence of both cervix and uterus; V43.52XA Car driver injured in collision with other type car in traffic accident, initial encounter; Y93.89 Activity, other specified; Y92.89 Other specified places as the place of occurrence of the external cause; Y99.8 Other external cause status
CPT/HCPCS: 72125; 73130; 73562; 93005; 96374; 99285; J1885

== ENCOUNTER 2021-01-28 10:52 | Inpatient (IN) | payer MEDICAID ==
[~2021-01-28] VITALS: Ht 167.6 cm; Wt 95.3 kg
[2021-01-28 11:38] LABS: Basophils # (auto) 0.1 10 ^3/uL (0-0.2); Basophils % (auto) 0.7 % (0.0-2.0); Eosinophils # (auto) 0.3 10 ^3/uL (0-0.8); Eosinophils % (auto) 3.7 % (0.0-7.0); Hematocrit 40.4 % (36.0-46.0); Lymphocytes # (auto) 1.7 10 ^3/uL (0.4-5.4); Lymphocytes % (auto) 18.1 % (10.0-50.0); Mean Corpuscular Hemoglobin 30.4 pg (28.0-32.0); Mean Corpuscular Hgb Conc. 34.6 g/dL (32.0-36.0); Mean Corpuscular Volume 87.9 fL (80.0-100.0); Monocytes # (auto) 0.6 10 ^3/uL (0-1.3); Monocytes % (auto) 6.3 % (0.0-12.0); Neutrophils # (auto) 6.6 10 ^3/uL (1.6-8.6); Neutrophils % (auto) 71.2 % (37.0-80.0); Nucleated Red Blood Cells % 0.1 %; Platelet Count (auto) 221 10^3/uL (140-450); Red Cell Distribution Width 13.9 % (11.8-14.3); White Blood Cell 9.3 10^3/uL (4.4-10.8)
[2021-01-28 11:55] LABS: INR 0.98 (0.9-1.15); Partial Thromboplastin Time 26.2 sec (23.0-31.2)
[2021-01-28 11:57] LABS: Albumin 3.3 g/dL (3.4-5.0); Calcium 10.1 mg/dL (8.5-10.1)
[2021-01-28] MEDS ORDERED: hydrALAZINE HCL 20 MG/ML VL IV ONE (12:00)
[2021-01-28 12:02] LABS: BUN/Creatinine Ratio 20.8; Bilirubin, Total 0.4 mg/dL (0.2-1.0); Total Protein 7.5 g/dL (6.4-8.2)
[2021-01-28] MEDS ORDERED: POTASSIUM CHL 20 Meq TABLET PO ONE (12:45)
[2021-01-28] MEDS ORDERED: ASPirin-EC 81 mg tab PO ONE (12:45)
[2021-01-28 12:55] LABS: Urine Bacteria NONE SEEN /hpf (None Seen); Urine Blood Negative /uL (Negative); Urine Specific Gravity 1.004 (1.001-1.035); Urine WBC 1 /hpf (0 - 5)
[2021-01-28] MEDS ORDERED: MORPHINE SULF INJ 2 MG/ML SYRINGE 1ML IV PRN ×2 (13:30)
[2021-01-28] MEDS ORDERED: DEXTROSE (50%) 50ML SYRG IV PRN (13:30)
[2021-01-28] MEDS ORDERED: NITROGLYCERIN 0.4 MG SL TAB SL PRN (13:30)
[2021-01-28] MEDS ORDERED: ONDANSETRON HCL 4 MG/2 ML VIAL IV PRN (13:30)
[2021-01-28] MEDS ORDERED: ACETAMINOPHEN 500 MG TAB PO PRN (13:30)
[2021-01-28] MEDS ORDERED: IOHEXOL 350 MG/ML 100ML IJ ONE ×2 (13:34→15:54)
[2021-01-28] MEDS ORDERED: diphenhdrAMINE HCL 50 MG/1 ML VL IV ONE (15:13)
[2021-01-28] MEDS ORDERED: diphenhdrAMINE HCL 50 MG/1 ML VL ONE (15:21)
[2021-01-28] MEDS ORDERED: methylPREDNISolone SOD SUCC 125 MG/2 ML VL ONE ×2 (15:21→15:24)
[2021-01-28] MEDS: InsuLIN REG 1unit/0.01ml Soln (100units/ml) SC SCH ×2 (17:00→21:30)
[2021-01-28] MEDS: ACCU-CHEK COMFORT CURVE STRIP VI SCH ×2 (17:00→21:28)
[2021-01-28] MEDS: ATORVASTATIN 20 MG TAB PO SCH (21:28)
[2021-01-28] MEDS: METOPROLOL TARTRATE 25 MG TAB PO SCH (21:28)
[2021-01-28] MEDS: hydrALAZINE HCL 20 MG/ML VL IV PRN (21:46)
[2021-01-29 06:06] LABS: Basophils # (auto) 0 10 ^3/uL (0-0.2); Basophils % (auto) 0.2 % (0.0-2.0); Eosinophils # (auto) 0 10 ^3/uL (0-0.8); Hematocrit 44.1 % (36.0-46.0); Hemoglobin 15.9 g/dL (12.2-16.2); Lymphocytes # (auto) 1.1 10 ^3/uL (0.4-5.4); Lymphocytes % (auto) 9.7 % (10.0-50.0); Mean Corpuscular Hemoglobin 31.8 pg (28.0-32.0); Mean Corpuscular Hgb Conc. 36.1 g/dL (32.0-36.0); Monocytes # (auto) 0.1 10 ^3/uL (0-1.3); Monocytes % (auto) 0.8 % (0.0-12.0); Neutrophils # (auto) 9.7 10 ^3/uL (1.6-8.6); Neutrophils % (auto) 89.3 % (37.0-80.0); Nucleated Red Blood Cells % 0.1 %; Platelet Count (auto) 271 10^3/uL (140-450); Red Blood Cells 5.01 10^6/uL (4.0-5.20); Red Cell Distribution Width 14.5 % (11.8-14.3); White Blood Cell 10.8 10^3/uL (4.4-10.8)
[2021-01-29 06:18] LABS: Calcium 10.6 mg/dL (8.5-10.1); Magnesium 2.3 mg/dL (1.6-2.6); Potassium 3.2 mmol/L (3.5-5.1)
[2021-01-29 06:23] LABS: BUN/Creatinine Ratio 20.8; INR 0.98 (0.9-1.15); Partial Thromboplastin Time 26.7 sec (23.0-31.2)
[2021-01-29] MEDS: ACCU-CHEK COMFORT CURVE STRIP VI SCH ×4 (06:51→22:00)
[2021-01-29] MEDS: InsuLIN REG 1unit/0.01ml Soln (100units/ml) SC SCH ×4 (06:52→23:59)
[2021-01-29] MEDS: hydrALAZINE HCL 20 MG/ML VL IV PRN (09:12)
[2021-01-29] MEDS: ASPirin-EC 81 mg tab PO SCH (09:26)
[2021-01-29] MEDS: METOPROLOL TARTRATE 25 MG TAB PO SCH (09:26)
[2021-01-29] MEDS: LISINOPRIL 20 MG TAB PO SCH (09:27)
[2021-01-29] MEDS ORDERED: FAMOTIDINE 20 MG TAB PO SCH (10:00)
[2021-01-29] MEDS: METOPROLOL TARTRATE 50 MG TAB PO SCH ×2 (10:54→22:00)
[2021-01-29] MEDS ORDERED: NICOTINE 14 MG/24HR TOPICAL PATCH TD ONE (12:15)
[2021-01-29] MEDS: cloNIDine HCL 0.1 MG TAB PO PRN (13:16)
[2021-01-29] MEDS ORDERED: ISOSORBIDE MONONITRATE ER 60 MG TAB PO ONE (14:00)
[2021-01-29] MEDS ORDERED: NITROGLYCERIN 0.4 MG SL TAB SL PRN (16:00)
[2021-01-29] MEDS ORDERED: LORazepam 2MG/ML-1ML VIAL IV PRN (19:45)
[2021-01-29 20:06] LABS: Cholesterol 235 mg/dL (< 200)
[2021-01-29 20:09] LABS: HDL Cholesterol 103 mg/dL (40-59); LDL Cholesterol 110 mg/dL (< 100); Triglycerides 57 mg/dL (< 150)
[2021-01-29] MEDS: ATORVASTATIN 20 MG TAB PO SCH (23:10)
[2021-01-30] VITALS (8 sets, daily range): BP systolic 144–172; BP diastolic 72–94
[2021-01-30] MEDS: hydrALAZINE HCL 20 MG/ML VL IV PRN ×2 (06:08→15:40)
[2021-01-30] MEDS: ACCU-CHEK COMFORT CURVE STRIP VI SCH ×4 (06:10→21:30)
[2021-01-30] MEDS: InsuLIN REG 1unit/0.01ml Soln (100units/ml) SC SCH ×4 (06:10→21:35)
[2021-01-30] MEDS ORDERED: ISOSORBIDE MONONITRATE ER 60 MG TAB PO SCH (10:00)
[2021-01-30] MEDS: LISINOPRIL 20 MG TAB PO SCH (10:11)
[2021-01-30] MEDS: FAMOTIDINE 20 MG TAB PO SCH (10:12)
[2021-01-30] MEDS: ASPirin-EC 81 mg tab PO SCH (10:13)
[2021-01-30] MEDS: METOPROLOL TARTRATE 50 MG TAB PO SCH ×2 (10:13→21:29)
[2021-01-30] MEDS: cloNIDine HCL 0.1 MG TAB PO PRN (12:59)
[2021-01-30] MEDS: hydrALAZINE HCL 25 MG TAB PO SCH ×2 (18:04→21:29)
[2021-01-30] MEDS: ATORVASTATIN 20 MG TAB PO SCH (21:29)
[2021-01-31] MEDS: hydrALAZINE HCL 25 MG TAB PO SCH ×6 (02:05→22:00)
[2021-01-31 05:00] VITALS: BP 173/98
[2021-01-31 05:43] LABS: Basophils # (auto) 0 10 ^3/uL (0-0.2); Basophils % (auto) 0.4 % (0.0-2.0); Eosinophils # (auto) 0.3 10 ^3/uL (0-0.8); Eosinophils % (auto) 2.7 % (0.0-7.0); Hematocrit 40.5 % (36.0-46.0); Hemoglobin 13.9 g/dL (12.2-16.2); Lymphocytes # (auto) 3.4 10 ^3/uL (0.4-5.4); Lymphocytes % (auto) 29.8 % (10.0-50.0); Mean Corpuscular Hemoglobin 30.6 pg (28.0-32.0); Mean Corpuscular Hgb Conc. 34.3 g/dL (32.0-36.0); Mean Corpuscular Volume 89.3 fL (80.0-100.0); Monocytes # (auto) 0.8 10 ^3/uL (0-1.3); Monocytes % (auto) 6.8 % (0.0-12.0); Neutrophils # (auto) 6.8 10 ^3/uL (1.6-8.6); Neutrophils % (auto) 60.3 % (37.0-80.0); Nucleated Red Blood Cells % 0.2 %; Platelet Count (auto) 228 10^3/uL (140-450); Red Blood Cells 4.53 10^6/uL (4.0-5.20); Red Cell Distribution Width 14.2 % (11.8-14.3); White Blood Cell 11.3 10^3/uL (4.4-10.8)
[2021-01-31] MEDS: ACCU-CHEK COMFORT CURVE STRIP VI SCH ×4 (05:45→22:13)
[2021-01-31] MEDS: InsuLIN REG 1unit/0.01ml Soln (100units/ml) SC SCH ×4 (06:00→22:17)
[2021-01-31 06:02] LABS: BUN/Creatinine Ratio 26.7; Calcium 9.5 mg/dL (8.5-10.1); Potassium 3.5 mmol/L (3.5-5.1)
[2021-01-31 06:17] LABS: INR 0.95 (0.9-1.15); Partial Thromboplastin Time 24.2 sec (23.0-31.2)
[2021-01-31] MEDS: FAMOTIDINE 20 MG TAB PO SCH (08:46)
[2021-01-31] MEDS: ASPirin-EC 81 mg tab PO SCH (08:46)
[2021-01-31] MEDS: CLOPIDOGREL BISULFATE 75 MG TAB PO SCH (08:47)
[2021-01-31] MEDS: LISINOPRIL 20 MG TAB PO SCH (08:48)
[2021-01-31 08:52] VITALS: BP 183/87
[2021-01-31] MEDS: METOPROLOL TARTRATE 50 MG TAB PO SCH ×2 (10:00→22:00)
[2021-01-31] MEDS ORDERED: ISOSORBIDE MONONITRATE ER 60 MG TAB PO SCH (10:00)
[2021-01-31] MEDS: cloNIDine HCL 0.1 MG TAB PO PRN (12:40)
[2021-01-31 13:00] VITALS: BP 195/88
[2021-01-31] MEDS ORDERED: IODIXANOL 320MG/ML 100ML BTL IV ONE (13:30)
[2021-01-31] MEDS ORDERED: LIDOCAINE 2%HCL (LOCAL ANESTH.) INJ 20ML MDV ONE (13:30)
[2021-01-31] MEDS ORDERED: fentaNYL CITRATE 100 MCG/2 ML VL ONE (13:39)
[2021-01-31] MEDS ORDERED: ANGIOMAX 250 MG VIAL IV ONE (13:39)
[2021-01-31] MEDS ORDERED: SODIUM CHL 0.9% 0 ML ONE (13:39)
[2021-01-31] MEDS ORDERED: MIDAZOLAM HCL 1MG/1ML-2 ML VIAL ONE (13:39)
[2021-01-31 17:00] VITALS: BP 148/75
[2021-01-31 21:46] VITALS: BP 165/81
[2021-01-31] MEDS: ATORVASTATIN 20 MG TAB PO SCH (22:00)
[2021-01-31] MEDS: hydrALAZINE HCL 20 MG/ML VL IV PRN (22:29)
[2021-02-01] MEDS: hydrALAZINE HCL 25 MG TAB PO SCH ×6 (02:00→22:04)
[2021-02-01] MEDS: hydrALAZINE HCL 20 MG/ML VL IV PRN ×2 (02:42→06:43)
[2021-02-01 04:24] VITALS: BP 165/86
[2021-02-01] MEDS: ACCU-CHEK COMFORT CURVE STRIP VI SCH ×4 (05:39→22:05)
[2021-02-01] MEDS: InsuLIN REG 1unit/0.01ml Soln (100units/ml) SC SCH ×4 (05:39→22:06)
[2021-02-01] MEDS: ASPirin-EC 81 mg tab PO SCH (08:59)
[2021-02-01 09:00] VITALS: BP 186/93
[2021-02-01] MEDS: HCTZ 25 MG TAB PO SCH (09:00)
[2021-02-01] MEDS: FAMOTIDINE 20 MG TAB PO SCH (09:01)
[2021-02-01] MEDS: amLODIPine BESYLATE 5 MG TAB PO SCH (09:01)
[2021-02-01] MEDS: METOPROLOL TARTRATE 50 MG TAB PO SCH ×2 (09:01→22:04)
[2021-02-01] MEDS: CLOPIDOGREL BISULFATE 75 MG TAB PO SCH (09:02)
[2021-02-01] MEDS: LISINOPRIL 20 MG TAB PO SCH (09:02)
[2021-02-01] MEDS: cloNIDine HCL 0.1 MG TAB PO PRN (11:49)
[2021-02-01 13:00] VITALS: BP 127/73
[2021-02-01] MEDS: HYDROcodone-ACET 5/325MG TAB PO PRN (16:31)
[2021-02-01 17:00] VITALS: BP 168/86
[2021-02-01 21:18] VITALS: BP 140/81
[2021-02-01] MEDS: ATORVASTATIN 20 MG TAB PO SCH ×2 (22:00→22:04)
[2021-02-02] MEDS: hydrALAZINE HCL 25 MG TAB PO SCH ×6 (02:52→21:56)
[2021-02-02 05:00] VITALS: BP 141/90
[2021-02-02] MEDS: ACCU-CHEK COMFORT CURVE STRIP VI SCH ×4 (06:30→21:56)
[2021-02-02] MEDS: InsuLIN REG 1unit/0.01ml Soln (100units/ml) SC SCH ×4 (06:30→22:04)
[2021-02-02] MEDS: ASPirin-EC 81 mg tab PO SCH (08:08)
[2021-02-02] MEDS: HCTZ 25 MG TAB PO SCH (08:09)
[2021-02-02] MEDS: METOPROLOL TARTRATE 50 MG TAB PO SCH ×2 (08:09→21:56)
[2021-02-02] MEDS: FAMOTIDINE 20 MG TAB PO SCH (08:10)
[2021-02-02] MEDS: amLODIPine BESYLATE 5 MG TAB PO SCH (08:10)
[2021-02-02] MEDS: LISINOPRIL 20 MG TAB PO SCH (08:10)
[2021-02-02] MEDS: CLOPIDOGREL BISULFATE 75 MG TAB PO SCH (08:10)
[2021-02-02 09:04] VITALS: BP 195/102
[2021-02-02] MEDS: cloNIDine HCL 0.1 MG TAB PO PRN ×2 (09:08→18:10)
[2021-02-02] MEDS: hydrALAZINE HCL 20 MG/ML VL IV PRN (10:21)
[2021-02-02 13:09] VITALS: BP 145/80
[2021-02-02] MEDS: HYDROcodone-ACET 5/325MG TAB PO PRN (14:16)
[2021-02-02 17:04] VITALS: BP 145/81
[2021-02-02] MEDS: ATORVASTATIN 20 MG TAB PO SCH (21:56)
[2021-02-02 22:05] VITALS: BP_SYST 145; BP_DIAS 52; BP_DIAS 82
[2021-02-03] MEDS: hydrALAZINE HCL 25 MG TAB PO SCH ×7 (02:00→22:37)
[2021-02-03 04:46] VITALS: BP 159/85
[2021-02-03] MEDS: ACCU-CHEK COMFORT CURVE STRIP VI SCH ×4 (06:29→20:47)
[2021-02-03] MEDS: InsuLIN REG 1unit/0.01ml Soln (100units/ml) SC SCH ×4 (06:29→22:00)
[2021-02-03 08:54] VITALS: BP 163/76
[2021-02-03] MEDS: ASPirin-EC 81 mg tab PO SCH (09:31)
[2021-02-03] MEDS: HCTZ 25 MG TAB PO SCH (09:32)
[2021-02-03] MEDS: LISINOPRIL 20 MG TAB PO SCH (09:33)
[2021-02-03] MEDS: METOPROLOL TARTRATE 50 MG TAB PO SCH ×2 (09:35→22:37)
[2021-02-03] MEDS: amLODIPine BESYLATE 5 MG TAB PO SCH (09:35)
[2021-02-03] MEDS: CLOPIDOGREL BISULFATE 75 MG TAB PO SCH (09:35)
[2021-02-03] MEDS: FAMOTIDINE 20 MG TAB PO SCH (09:35)
[2021-02-03 12:41] VITALS: BP 156/83
[2021-02-03 17:02] VITALS: BP 156/90
[2021-02-03] MEDS: HYDROcodone-ACET 5/325MG TAB PO PRN (20:56)
[2021-02-03] MEDS: LORazepam 0.5 MG TAB PO SCH (20:57)
[2021-02-03 22:00] VITALS: BP 158/94
[2021-02-03] MEDS: ATORVASTATIN 20 MG TAB PO SCH (22:36)
[2021-02-03] MEDS: MINOXIDIL 2.5 MG TAB PO SCH (22:38)
[2021-02-04 05:00] VITALS: BP 155/85
[2021-02-04] MEDS: hydrALAZINE HCL 25 MG TAB PO SCH ×5 (05:58→21:23)
[2021-02-04] MEDS: InsuLIN REG 1unit/0.01ml Soln (100units/ml) SC SCH ×4 (06:26→21:49)
[2021-02-04] MEDS: ACCU-CHEK COMFORT CURVE STRIP VI SCH ×4 (06:28→21:49)
[2021-02-04 07:52] VITALS: BP 160/97
[2021-02-04] MEDS: ASPirin-EC 81 mg tab PO SCH (08:28)
[2021-02-04] MEDS: METOPROLOL TARTRATE 50 MG TAB PO SCH ×2 (08:28→21:24)
[2021-02-04] MEDS: MINOXIDIL 2.5 MG TAB PO SCH ×2 (08:29→21:23)
[2021-02-04] MEDS: amLODIPine BESYLATE 5 MG TAB PO SCH (08:29)
[2021-02-04] MEDS: LOSARTAN POTASSIUM 50 MG TAB PO SCH (08:29)
[2021-02-04] MEDS: CLOPIDOGREL BISULFATE 75 MG TAB PO SCH (08:30)
[2021-02-04] MEDS: HCTZ 25 MG TAB PO SCH (08:30)
[2021-02-04] MEDS: FAMOTIDINE 20 MG TAB PO SCH (08:34)
[2021-02-04] MEDS: cloNIDine HCL 0.1 MG TAB PO PRN (09:48)
[2021-02-04] MEDS: LORazepam 0.5 MG TAB PO SCH ×2 (11:05→21:22)
[2021-02-04] MEDS: SERTRALINE HCL 50 MG TAB PO SCH (11:05)
[2021-02-04 11:10] VITALS: BP 164/92
[2021-02-04] MEDS: hydrALAZINE HCL 20 MG/ML VL IV PRN (12:57)
[2021-02-04 17:00] VITALS: BP 153/75
[2021-02-04] MEDS: ATORVASTATIN 20 MG TAB PO SCH (21:12)
[2021-02-04 22:00] VITALS: BP 140/76
[2021-02-05] MEDS: hydrALAZINE HCL 25 MG TAB PO SCH ×3 (02:13→09:55)
[2021-02-05 05:00] VITALS: BP 146/78
[2021-02-05] MEDS: InsuLIN REG 1unit/0.01ml Soln (100units/ml) SC SCH ×2 (06:23→13:01)
[2021-02-05] MEDS: ACCU-CHEK COMFORT CURVE STRIP VI SCH ×2 (06:23→13:00)
[2021-02-05 09:00] VITALS: BP 150/80
[2021-02-05] MEDS: ASPirin-EC 81 mg tab PO SCH (09:55)
[2021-02-05] MEDS: LOSARTAN POTASSIUM 50 MG TAB PO SCH (09:55)
[2021-02-05] MEDS: HCTZ 25 MG TAB PO SCH (09:55)
[2021-02-05] MEDS: MINOXIDIL 2.5 MG TAB PO SCH (09:56)
[2021-02-05] MEDS: METOPROLOL TARTRATE 50 MG TAB PO SCH (10:01)
[2021-02-05] MEDS: amLODIPine BESYLATE 5 MG TAB PO SCH (10:01)
[2021-02-05] MEDS: CLOPIDOGREL BISULFATE 75 MG TAB PO SCH (10:02)
[2021-02-05] MEDS: FAMOTIDINE 20 MG TAB PO SCH (10:02)
[2021-02-05] MEDS: SERTRALINE HCL 50 MG TAB PO SCH (10:02)
[2021-02-05 10:20] VITALS: BP 150/80
[2021-02-05 12:55] VITALS: BP 126/86
== END 2021-02-05 14:00 | disposition home health service (06) | DRG 45 ==
LOC: ER 10:52 → TELE 13:18 → TELE-EAST 01-30 01:55
PROVIDERS: ADMIT Nurse Practitioner Acute Care; ATTEND Family Medicine
PROC: B410YZZ Fluoroscopy of Abdominal Aorta using Other Contrast (ICD-10-PCS; principal; 2021-01-31)
PROC: B418YZZ Fluoroscopy of Bilateral Renal Arteries using Other Contrast (ICD-10-PCS; 2021-01-31)
DX: I63.81 Other cerebral infarction due to occlusion or stenosis of small artery (principal); I21.4 Non-ST elevation (NSTEMI) myocardial infarction; N18.31 Chronic kidney disease, stage 3a; I16.9 Hypertensive crisis, unspecified; G81.94 Hemiplegia, unspecified affecting left nondominant side; E87.6 Hypokalemia; Z20.822 Contact with and (suspected) exposure to COVID-19; E11.9 Type 2 diabetes mellitus without complications; I12.9 Hypertensive chronic kidney disease with stage 1 through stage 4 chronic kidney disease, or unspecified chronic kidney disease; F17.210 Nicotine dependence, cigarettes, uncomplicated; E78.5 Hyperlipidemia, unspecified; E66.9 Obesity, unspecified; F32.9 Major depressive disorder, single episode, unspecified; Z90.49 Acquired absence of other specified parts of digestive tract; Z90.710 Acquired absence of both cervix and uterus; Z85.9 Personal history of malignant neoplasm, unspecified; Z79.82 Long term (current) use of aspirin; Z79.899 Other long term (current) drug therapy; Z79.891 Long term (current) use of opiate analgesic; Z79.01 Long term (current) use of anticoagulants; Z81.1 Family history of alcohol abuse and dependence; Z80.9 Family history of malignant neoplasm, unspecified; Z82.49 Family history of ischemic heart disease and other diseases of the circulatory system; Z79.84 Long term (current) use of oral hypoglycemic drugs
CPT/HCPCS: 36415; 70450; 70551; 71045; 74175; 80048; 80053; 80061; 81001; 82533; 82962; 83036; 83735; 84132; 84443; 84484; 85025; 85610; 85730; 86141; 87426; 93005; 93306; 93886; 93975; 94660; 96374; 96375; 97110; 97116; 97530; 99152; G0378; J1815; J2250; Q9967

== ENCOUNTER 2021-06-25 12:31 | Inpatient (IN) | payer MEDICAID ==
[~2021-06-25] VITALS: Ht 167.6 cm; Wt 95.0 kg
[2021-06-25] MEDS ORDERED: MORPHINE SULFATE INJECTION 2 MG/ML SYRG ONE (13:42)
[2021-06-25] MEDS ORDERED: ONDANSETRON HCL 4 MG/2 ML VIAL ONE (13:43)
[2021-06-25] MEDS ORDERED: ONDANSETRON HCL 4 MG/2 ML VIAL IV ONE (13:45)
[2021-06-25] MEDS ORDERED: MORPHINE SULFATE INJECTION 2 MG/ML SYRG IV ONE (13:45)
[2021-06-25] MEDS ORDERED: cloNIDine HCL 0.1 MG TAB ONE (15:03)
[2021-06-25] MEDS ORDERED: cloNIDine HCL 0.1 MG TAB PO ONE (15:15)
[2021-06-25 15:31] LABS: Basophils # (auto) 0.1 10 ^3/uL (0-0.2); Basophils % (auto) 0.5 % (0.0-2.0); Eosinophils # (auto) 0.5 10 ^3/uL (0-0.8); Eosinophils % (auto) 4.3 % (0.0-7.0); Hematocrit 40.8 % (36.0-46.0); Hemoglobin 14.4 g/dL (12.2-16.2); Lymphocytes # (auto) 1.8 10 ^3/uL (0.4-5.4); Lymphocytes % (auto) 14.3 % (10.0-50.0); Mean Corpuscular Hgb Conc. 35.2 g/dL (32.0-36.0); Mean Corpuscular Volume 85.3 fL (80.0-100.0); Monocytes # (auto) 0.8 10 ^3/uL (0-1.3); Monocytes % (auto) 6.4 % (0.0-12.0); Neutrophils # (auto) 9.4 10 ^3/uL (1.6-8.6); Neutrophils % (auto) 74.5 % (37.0-80.0); Nucleated Red Blood Cells % 0.1 %; Red Blood Cells 4.79 10^6/uL (4.0-5.20); Red Cell Distribution Width 12.5 % (11.8-14.3); White Blood Cell 12.6 10^3/uL (4.4-10.8)
[2021-06-25 15:48] LABS: INR 0.93 (0.9-1.15); Partial Thromboplastin Time 26.3 sec (23.6-33.0)
[2021-06-25 15:51] LABS: Albumin 3.3 g/dL (3.4-5.0); BUN/Creatinine Ratio 16.2; Magnesium 2.1 mg/dL (1.6-2.6); Potassium 3.2 mmol/L (3.5-5.1)
[2021-06-25 15:56] LABS: Bilirubin, Total 0.3 mg/dL (0.2-1.0); Total Protein 7.5 g/dL (6.4-8.2)
[2021-06-25 16:15] LABS: Urine Bacteria NONE SEEN /hpf (None Seen); Urine Blood Negative /uL (Negative); Urine Specific Gravity 1.006 (1.001-1.035); Urine WBC 2 /hpf (0 - 5)
[2021-06-25] MEDS ORDERED: MORPHINE SULFATE INJECTION 2 MG/ML SYRG IV PRN ×2 (16:30)
[2021-06-25] MEDS ORDERED: POTASSIUM EFFERVESENT TAB 25 MEQ PO ONE (16:30)
[2021-06-25] MEDS ORDERED: ONDANSETRON HCL 4 MG/2 ML VIAL IV PRN (16:30)
[2021-06-25] MEDS ORDERED: hydrALAZINE HCL 20 MG/ML VL IV ONE (16:30)
[2021-06-25] MEDS ORDERED: NITROGLYCERIN 0.4 MG SL TAB SL PRN (16:30)
[2021-06-25] MEDS ORDERED: amLODIPine BESYLATE 5 MG TAB PO ONE (16:30)
[2021-06-25] MEDS: cloNIDine HCL 0.1 MG TAB PO SCH (23:12)
[2021-06-25] MEDS: CARVEDILOL 12.5 MG TAB PO SCH (23:13)
[2021-06-25] MEDS: hydrALAZINE HCL 20 MG/ML VL IV PRN (23:15)
[2021-06-25] MEDS: HYDROcodone-ACET 5/325MG TAB PO PRN (23:15)
[2021-06-26] VITALS (8 sets, daily range): BP systolic 118–149; BP diastolic 69–75
[2021-06-26 05:46] LABS: Basophils # (auto) 0 10 ^3/uL (0-0.2); Basophils % (auto) 0.5 % (0.0-2.0); Eosinophils # (auto) 0.2 10 ^3/uL (0-0.8); Eosinophils % (auto) 1.9 % (0.0-7.0); Hematocrit 37.5 % (36.0-46.0); Hemoglobin 13.2 g/dL (12.2-16.2); Lymphocytes # (auto) 1.1 10 ^3/uL (0.4-5.4); Lymphocytes % (auto) 12.3 % (10.0-50.0); Mean Corpuscular Hgb Conc. 35.1 g/dL (32.0-36.0); Mean Corpuscular Volume 85.5 fL (80.0-100.0); Monocytes # (auto) 0.5 10 ^3/uL (0-1.3); Monocytes % (auto) 5.8 % (0.0-12.0); Neutrophils # (auto) 6.8 10 ^3/uL (1.6-8.6); Neutrophils % (auto) 79.5 % (37.0-80.0); Red Blood Cells 4.38 10^6/uL (4.0-5.20); Red Cell Distribution Width 12.5 % (11.8-14.3); White Blood Cell 8.6 10^3/uL (4.4-10.8)
[2021-06-26] MEDS: cloNIDine HCL 0.1 MG TAB PO SCH ×2 (06:00→14:00)
[2021-06-26 06:03] LABS: BUN/Creatinine Ratio 15.8; Calcium 9.4 mg/dL (8.5-10.1); Potassium 3.5 mmol/L (3.5-5.1)
[2021-06-26] MEDS: CARVEDILOL 12.5 MG TAB PO SCH ×2 (09:42→21:58)
[2021-06-26] MEDS: amLODIPine BESYLATE 5 MG TAB PO SCH (09:42)
[2021-06-26] MEDS: PANTOPRAZOLE 40 MG TAB PO SCH (09:43)
[2021-06-26] MEDS: ACETAMINOPHEN 500 MG TAB PO PRN (10:26)
[2021-06-26] MEDS ORDERED: LIDO1PAD55 TOP (11:30)
[2021-06-26] MEDS ORDERED: HYDR25TA5 PO (11:30)
[2021-06-26] MEDS ORDERED: CLOP75TA70 PO (11:30)
[2021-06-26] MEDS ORDERED: SERT25TA14 PO (11:30)
[2021-06-26] MEDS ORDERED: LOSA-39 PO (11:30)
[2021-06-26] MEDS ORDERED: MET50T PO (11:30)
[2021-06-26] MEDS: HYDROcodone-ACET 5/325MG TAB PO PRN (20:07)
[2021-06-26] MEDS ORDERED: ATORVASTATIN 20 MG TAB PO SCH (22:00)
[2021-06-27] MEDS: HYDROcodone-ACET 5/325MG TAB PO PRN ×2 (02:29→09:18)
[2021-06-27 05:00] VITALS: BP 172/93
[2021-06-27] MEDS: hydrALAZINE HCL 20 MG/ML VL IV PRN (05:28)
[2021-06-27 06:27] VITALS: BP 158/89
[2021-06-27 09:00] VITALS: BP_SYST 160; BP_SYST 171; BP_DIAS 78; BP_DIAS 83
[2021-06-27] MEDS ORDERED: LOSARTAN POTASSIUM 50 MG TAB PO SCH (10:00)
[2021-06-27] MEDS ORDERED: MINOXIDIL 2.5 MG TAB PO SCH (10:00)
[2021-06-27] MEDS: amLODIPine BESYLATE 5 MG TAB PO SCH (10:09)
[2021-06-27] MEDS: PANTOPRAZOLE 40 MG TAB PO SCH (10:09)
[2021-06-27] MEDS: CARVEDILOL 12.5 MG TAB PO SCH (10:09)
[2021-06-27 13:00] VITALS: BP 147/84
[2021-06-27] MEDS: ACETAMINOPHEN 500 MG TAB PO PRN (13:47)
[2021-06-27 13:59] VITALS: BP 160/78
== END 2021-06-27 15:00 | disposition home or self-care (01) | DRG 384 ==
LOC: ER 12:31 → EDBD 12:31 → TELE 16:26 → TELE-WESTW 23:03
PROVIDERS: ADMIT Nurse Practitioner Acute Care; ATTEND Family Medicine
DX: S00.03XA Contusion of scalp, initial encounter (principal); I21.A1 Myocardial infarction type 2; R65.10 Systemic inflammatory response syndrome (SIRS) of non-infectious origin without acute organ dysfunction; E87.1 Hypo-osmolality and hyponatremia; I16.9 Hypertensive crisis, unspecified; E11.9 Type 2 diabetes mellitus without complications; E66.9 Obesity, unspecified; E78.00 Pure hypercholesterolemia, unspecified; E78.5 Hyperlipidemia, unspecified; E87.6 Hypokalemia; Z20.822 Contact with and (suspected) exposure to COVID-19; F17.210 Nicotine dependence, cigarettes, uncomplicated; W01.0XXA Fall on same level from slipping, tripping and stumbling without subsequent striking against object, initial encounter; I10 Essential (primary) hypertension; Z82.49 Family history of ischemic heart disease and other diseases of the circulatory system; Z83.3 Family history of diabetes mellitus; Z86.73 Personal history of transient ischemic attack (TIA), and cerebral infarction without residual deficits; Z90.710 Acquired absence of both cervix and uterus; Z91.19 Patient's noncompliance with other medical treatment and regimen; Z68.33 Body mass index [BMI] 33.0-33.9, adult; Y93.89 Activity, other specified; Y99.8 Other external cause status; Y92.000 Kitchen of unspecified non-institutional (private) residence as the place of occurrence of the external cause
CPT/HCPCS: 36415; 70450; 71045; 72125; 80048; 80053; 81001; 83735; 84484; 85025; 85610; 85730; 87426; 93005; 93306; 93975; 96374; 96375; 96376; G0378; J2405

== ENCOUNTER 2021-08-25 10:42 | Emergency (ER) | payer MEDICAID ==
[~2021-08-25] VITALS: Ht 167.6 cm; Wt 102.5 kg
[~2021-08-25 10:42] MED LIST changes: -AML5T PO; -ATOR20TA50 PO; -CAR125T PO; -CLO01T PO; +CLOP75TA70 PO; +HYDR25TA5 PO; +LIDO1PAD55 TOP; +LOSA-39 PO; +MET50T PO; +SERT25TA14 PO
[2021-08-25] MEDS ORDERED: ACETAMINOPHEN/CODEINE#3 (300/30mg) TAB PO ONE (14:00)
[2021-08-25] MEDS ORDERED: ONDANSETRON ODT 4 MG TAB PO ONE (14:00)
[2021-08-25] MEDS ORDERED: cloNIDine HCL 0.1 MG TAB PO ONE (14:00)
[2021-08-25 17:18] VITALS: BP 152/80
== END 2021-08-25 17:31 | disposition home or self-care (01) ==
LOC: ER 10:42
DX: S62.307A Unspecified fracture of fifth metacarpal bone, left hand, initial encounter for closed fracture (principal); S52.615A Nondisplaced fracture of left ulna styloid process, initial encounter for closed fracture; S22.32XA Fracture of one rib, left side, initial encounter for closed fracture; S93.402A Sprain of unspecified ligament of left ankle, initial encounter; E11.9 Type 2 diabetes mellitus without complications; I10 Essential (primary) hypertension; F17.210 Nicotine dependence, cigarettes, uncomplicated; Z90.49 Acquired absence of other specified parts of digestive tract; Z90.710 Acquired absence of both cervix and uterus; Z86.73 Personal history of transient ischemic attack (TIA), and cerebral infarction without residual deficits; W18.39XA Other fall on same level, initial encounter; Y93.89 Activity, other specified; Y92.89 Other specified places as the place of occurrence of the external cause; Y99.8 Other external cause status
CPT/HCPCS: 29125; 71250; 73130; 73502; 73610; 99284; Q0162

== ENCOUNTER 2022-01-08 08:54 | Inpatient (IN) | payer MEDICAID ==
[~2022-01-08] VITALS: Ht 170.2 cm; Wt 104.5 kg
[2022-01-08] MEDS ORDERED: HYDROcodone-ACET 5/325MG TAB PO ONE (10:15)
[2022-01-08 10:46] LABS: Basophils # (auto) 0.1 10 ^3/uL (0-0.2); Basophils % (auto) 0.7 % (0.0-2.0); Eosinophils # (auto) 0.3 10 ^3/uL (0-0.8); Hematocrit 41.8 % (36.0-46.0); Hemoglobin 14.4 g/dL (12.2-16.2); Lymphocytes # (auto) 1.5 10 ^3/uL (0.4-5.4); Lymphocytes % (auto) 14.2 % (10.0-50.0); Mean Corpuscular Hemoglobin 29.1 pg (28.0-32.0); Mean Corpuscular Hgb Conc. 34.3 g/dL (32.0-36.0); Mean Corpuscular Volume 84.7 fL (80.0-100.0); Monocytes # (auto) 0.8 10 ^3/uL (0-1.3); Monocytes % (auto) 7.5 % (0.0-12.0); Neutrophils # (auto) 7.9 10 ^3/uL (1.6-8.6); Neutrophils % (auto) 74.6 % (37.0-80.0); Red Blood Cells 4.94 10^6/uL (4.0-5.20); Red Cell Distribution Width 13.7 % (11.8-14.3); White Blood Cell 10.6 10^3/uL (4.4-10.8)
[2022-01-08] MEDS ORDERED: MORPHINE SULFATE 4 MG/ML SYR/VIAL IV ONE (11:00)
[2022-01-08] MEDS ORDERED: ONDANSETRON HCL 4 MG/2 ML VIAL IV ONE (11:00)
[2022-01-08 11:15] LABS: Albumin 3.5 g/dL (3.4-5.0); Calcium 10.3 mg/dL (8.5-10.1); Potassium 3.3 mmol/L (3.5-5.1)
[2022-01-08 11:17] LABS: BUN/Creatinine Ratio 19.6
[2022-01-08 11:40] LABS: Bilirubin, Total 0.2 mg/dL (0.2-1.0); Total Protein 7.5 g/dL (6.4-8.2)
[2022-01-08] MEDS ORDERED: BENAZEPRIL HCL 10 MG TAB PO ONE (13:45)
[2022-01-08] MEDS ORDERED: ENOXAPARIN SOD 100 MG/1 ML SYRINGE SC ONE (13:45)
[2022-01-08] MEDS ORDERED: LABETALOL HCL 5 MG/ML 4ML SYRINGE IV ONE (13:45)
[2022-01-08] MEDS ORDERED: METOPROLOL SUCCINATE XL 50 MG TAB PO ONE (13:45)
[2022-01-08] MEDS ORDERED: POTASSIUM CHL 20 Meq TABLET PO ONE (13:45)
[2022-01-08] MEDS ORDERED: DEXTROSE (50%) 50ML SYRG IV PRN (14:00)
[2022-01-08] MEDS ORDERED: DOCUSATE SOD 100 MG CAP PO PRN (14:00)
[2022-01-08] MEDS ORDERED: FAMOTIDINE (10MG/ML) 2ML VL IV ONE (14:00)
[2022-01-08] MEDS ORDERED: LORazepam 0.5 MG TAB PO PRN (14:00)
[2022-01-08 14:20] LABS: Magnesium 2.3 mg/dL (1.6-2.6); Phosphorus 2.5 mg/dL (2.5-4.90)
[2022-01-08] MEDS: SODIUM CHLORIDE 0.9% 1,000 ML IV SCH (15:20)
[2022-01-08 15:33] LABS: INR 0.97 (0.9-1.15); Partial Thromboplastin Time 26.5 sec (23.6-33.0)
[2022-01-08] MEDS ORDERED: MORPHINE SULFATE INJECTION 2 MG/ML SYRG IV PRN (17:00)
[2022-01-08] MEDS: InsuLIN REG 1unit/0.01ml Soln (100units/ml) SC SCH ×2 (17:00→22:35)
[2022-01-08] MEDS ORDERED: NITROGLYCERIN 0.4 MG SL TAB SL PRN (17:00)
[2022-01-08] MEDS: ACCU-CHEK COMFORT CURVE STRIP VI SCH ×2 (17:28→22:00)
[2022-01-08] MEDS: HYDROcodone-ACET 5/325MG TAB PO PRN (17:34)
[2022-01-08] MEDS: FUROSEMIDE 20 MG/2 ML VIAL IV SCH (18:07)
[2022-01-08] MEDS: LABETALOL HCL 5 MG/ML 4ML SYRINGE IV PRN (18:37)
[2022-01-08] MEDS: CALCIUM W/VIT D (600MG/400IU) TAB PO SCH (18:38)
[2022-01-08 19:50] VITALS: BP 142/78
[2022-01-08 21:49] VITALS: BP 142/78
[2022-01-08] MEDS: ISOSORBIDE MONONITRATE 20 MG TAB PO SCH (22:34)
[2022-01-08] MEDS: MORPHINE SULFATE INJECTION 2 MG/ML SYRG IV PRN (22:36)
[2022-01-09] VITALS (8 sets, daily range): BP systolic 136–191; BP diastolic 62–86
[2022-01-09] MEDS: HYDROcodone-ACET 5/325MG TAB PO PRN ×3 (01:58→19:58)
[2022-01-09] MEDS: MORPHINE SULFATE INJECTION 2 MG/ML SYRG IV PRN ×2 (05:24→21:29)
[2022-01-09] MEDS: hydrALAZINE HCL 20 MG/ML VL IV PRN ×2 (05:30→12:30)
[2022-01-09] MEDS: FUROSEMIDE 20 MG/2 ML VIAL IV SCH (05:31)
[2022-01-09 06:12] LABS: Basophils # (auto) 0 10 ^3/uL (0-0.2); Basophils % (auto) 0.4 % (0.0-2.0); Eosinophils # (auto) 0.4 10 ^3/uL (0-0.8); Hematocrit 36.6 % (36.0-46.0); Hemoglobin 12.7 g/dL (12.2-16.2); Lymphocytes # (auto) 1.7 10 ^3/uL (0.4-5.4); Lymphocytes % (auto) 19.2 % (10.0-50.0); Mean Corpuscular Hemoglobin 30.1 pg (28.0-32.0); Mean Corpuscular Hgb Conc. 34.8 g/dL (32.0-36.0); Mean Corpuscular Volume 86.3 fL (80.0-100.0); Monocytes # (auto) 0.6 10 ^3/uL (0-1.3); Monocytes % (auto) 6.8 % (0.0-12.0); Neutrophils # (auto) 6.3 10 ^3/uL (1.6-8.6); Neutrophils % (auto) 69.6 % (37.0-80.0); Nucleated Red Blood Cells % 0.1 %; Red Blood Cells 4.24 10^6/uL (4.0-5.20); Red Cell Distribution Width 13.7 % (11.8-14.3)
[2022-01-09] MEDS: InsuLIN REG 1unit/0.01ml Soln (100units/ml) SC SCH ×4 (06:20→21:38)
[2022-01-09] MEDS: ACCU-CHEK COMFORT CURVE STRIP VI SCH ×4 (06:21→21:38)
[2022-01-09 06:23] LABS: INR 0.99 (0.9-1.15); Partial Thromboplastin Time 28.9 sec (23.6-33.0)
[2022-01-09 06:26] LABS: Potassium 3.2 mmol/L (3.5-5.1)
[2022-01-09 06:49] LABS: Albumin 3.2 g/dL (3.4-5.0); Bilirubin, Total 0.6 mg/dL (0.2-1.0); CRP High Sensitivity 1.87 mg/dL (< 0.3); Calcium 9.5 mg/dL (8.5-10.1); Magnesium 1.9 mg/dL (1.6-2.6); Total Protein 6.8 g/dL (6.4-8.2); Uric Acid 8.7 mg/dL (2.6-6.0)
[2022-01-09] MEDS: FAMOTIDINE (10MG/ML) 2ML VL IV SCH (08:29)
[2022-01-09] MEDS: ENOXAPARIN SOD 40 MG/0.4 ML SYRINGE SC SCH (08:29)
[2022-01-09] MEDS: CALCIUM W/VIT D (600MG/400IU) TAB PO SCH ×2 (08:29→17:58)
[2022-01-09] MEDS: ASPirin-EC 81 mg tab PO SCH (08:30)
[2022-01-09] MEDS: ISOSORBIDE MONONITRATE 20 MG TAB PO SCH (08:30)
[2022-01-09] MEDS: SERTRALINE HCL 50 MG TAB PO SCH (08:31)
[2022-01-09] MEDS: METOPROLOL SUCCINATE XL 50 MG TAB PO SCH (08:31)
[2022-01-09] MEDS ORDERED: POTASSIUM CHL 20 Meq TABLET PO ONE (10:00)
[2022-01-09] MEDS ORDERED: amLODIPine BESYLATE 5 MG TAB PO SCH (10:00)
[2022-01-09] MEDS ORDERED: BENAZEPRIL HCL 10 MG TAB PO SCH (10:00)
[2022-01-09] MEDS ORDERED: LIDOCAINE 5% TOPICAL PATCH TOP SCH (10:00)
[2022-01-09] MEDS: SODIUM CHLORIDE 0.9% 1,000 ML IV SCH (10:59)
[2022-01-09] MEDS ORDERED: MIN25T PO (12:39)
[2022-01-09] MEDS ORDERED: METF-370 PO (12:39)
[2022-01-09] MEDS: LABETALOL HCL 5 MG/ML 4ML SYRINGE IV PRN (21:29)
[2022-01-09] MEDS: ATORVASTATIN 20 MG TAB PO SCH (21:37)
[2022-01-10] MEDS: HYDROcodone-ACET 5/325MG TAB PO PRN ×2 (04:16→11:35)
[2022-01-10] MEDS: LABETALOL HCL 5 MG/ML 4ML SYRINGE IV PRN ×2 (04:16→21:33)
[2022-01-10] MEDS: hydrALAZINE HCL 20 MG/ML VL IV PRN ×2 (04:53→18:16)
[2022-01-10 04:54] VITALS: BP 211/95
[2022-01-10] MEDS ORDERED: cloNIDine HCL 0.1 MG TAB PO ONE (05:30)
[2022-01-10] MEDS: SODIUM CHLORIDE 0.9% 1,000 ML IV SCH (06:00)
[2022-01-10] MEDS: ACCU-CHEK COMFORT CURVE STRIP VI SCH ×4 (06:25→21:32)
[2022-01-10] MEDS: InsuLIN REG 1unit/0.01ml Soln (100units/ml) SC SCH ×4 (06:33→21:34)
[2022-01-10] MEDS: CALCIUM W/VIT D (600MG/400IU) TAB PO SCH ×2 (07:16→17:30)
[2022-01-10 08:00] VITALS: BP 123/70
[2022-01-10] MEDS: FAMOTIDINE (10MG/ML) 2ML VL IV SCH (09:07)
[2022-01-10] MEDS: LOSARTAN POTASSIUM 50 MG TAB PO SCH (09:11)
[2022-01-10] MEDS: ASPirin-EC 81 mg tab PO SCH (09:11)
[2022-01-10] MEDS: amLODIPine BESYLATE 5 MG TAB PO SCH (09:12)
[2022-01-10] MEDS: SERTRALINE HCL 50 MG TAB PO SCH (09:13)
[2022-01-10] MEDS: ENOXAPARIN SOD 40 MG/0.4 ML SYRINGE SC SCH (09:13)
[2022-01-10] MEDS: METOPROLOL SUCCINATE XL 50 MG TAB PO SCH (09:13)
[2022-01-10] MEDS ORDERED: guaiFENesin 200 MG/10 ML UD PO PRN (10:30)
[2022-01-10 12:00] VITALS: BP 151/88
[2022-01-10 16:00] VITALS: BP 154/93
[2022-01-10] MEDS: ATORVASTATIN 20 MG TAB PO SCH (21:32)
[2022-01-10] MEDS: ONDANSETRON HCL 4 MG/2 ML VIAL IV PRN (21:33)
[2022-01-10] MEDS: MORPHINE SULFATE INJECTION 2 MG/ML SYRG IV PRN (21:33)
[2022-01-10 21:40] VITALS: BP 191/83
[2022-01-11] MEDS: SODIUM CHLORIDE 0.9% 1,000 ML IV SCH ×2 (02:00→22:00)
[2022-01-11] MEDS: hydrALAZINE HCL 20 MG/ML VL IV PRN (04:27)
[2022-01-11 05:02] VITALS: BP 184/87
[2022-01-11] MEDS: ACCU-CHEK COMFORT CURVE STRIP VI SCH ×4 (06:11→22:02)
[2022-01-11] MEDS: InsuLIN REG 1unit/0.01ml Soln (100units/ml) SC SCH ×4 (06:11→22:03)
[2022-01-11] MEDS: LABETALOL HCL 5 MG/ML 4ML SYRINGE IV PRN ×2 (06:12→08:04)
[2022-01-11] MEDS: MORPHINE SULFATE INJECTION 2 MG/ML SYRG IV PRN (06:20)
[2022-01-11] MEDS: ONDANSETRON HCL 4 MG/2 ML VIAL IV PRN (06:21)
[2022-01-11] MEDS: CALCIUM W/VIT D (600MG/400IU) TAB PO SCH ×2 (08:19→17:57)
[2022-01-11 08:59] VITALS: BP 186/83
[2022-01-11] MEDS: FAMOTIDINE (10MG/ML) 2ML VL IV SCH (10:07)
[2022-01-11] MEDS: LOSARTAN POTASSIUM 50 MG TAB PO SCH (10:07)
[2022-01-11] MEDS: amLODIPine BESYLATE 5 MG TAB PO SCH (10:08)
[2022-01-11] MEDS: ASPirin-EC 81 mg tab PO SCH (10:08)
[2022-01-11] MEDS: METOPROLOL SUCCINATE XL 50 MG TAB PO SCH (10:08)
[2022-01-11] MEDS: ENOXAPARIN SOD 40 MG/0.4 ML SYRINGE SC SCH (10:09)
[2022-01-11] MEDS: SERTRALINE HCL 50 MG TAB PO SCH (10:09)
[2022-01-11] MEDS: cloNIDine HCL 0.1 MG TAB PO PRN (10:53)
[2022-01-11] MEDS: hydrALAZINE HCL 10 MG TAB PO SCH ×3 (12:23→23:50)
[2022-01-11 14:00] VITALS: BP 162/73
[2022-01-11 14:15] VITALS: BP 134/69
[2022-01-11 17:00] VITALS: BP 160/70
[2022-01-11 22:00] VITALS: BP 146/81
[2022-01-11] MEDS: ATORVASTATIN 20 MG TAB PO SCH (22:02)
[2022-01-11] MEDS: HYDROcodone-ACET 5/325MG TAB PO PRN (23:56)
[2022-01-12 05:00] VITALS: BP 198/91
[2022-01-12] MEDS: hydrALAZINE HCL 10 MG TAB PO SCH ×4 (05:34→23:57)
[2022-01-12] MEDS: InsuLIN REG 1unit/0.01ml Soln (100units/ml) SC SCH ×4 (05:43→22:02)
[2022-01-12] MEDS: ACCU-CHEK COMFORT CURVE STRIP VI SCH ×4 (05:43→21:52)
[2022-01-12 05:47] LABS: BUN/Creatinine Ratio 22.4; Calcium 10.6 mg/dL (8.5-10.1); Potassium 3.7 mmol/L (3.5-5.1)
[2022-01-12] MEDS: HYDROcodone-ACET 5/325MG TAB PO PRN ×2 (05:59→17:11)
[2022-01-12 08:00] VITALS: BP 163/99
[2022-01-12] MEDS: FAMOTIDINE (10MG/ML) 2ML VL IV SCH (08:44)
[2022-01-12] MEDS: CALCIUM W/VIT D (600MG/400IU) TAB PO SCH ×2 (08:44→17:11)
[2022-01-12] MEDS: LOSARTAN POTASSIUM 50 MG TAB PO SCH (08:45)
[2022-01-12] MEDS: ASPirin-EC 81 mg tab PO SCH (08:45)
[2022-01-12] MEDS: METOPROLOL SUCCINATE XL 50 MG TAB PO SCH (08:46)
[2022-01-12] MEDS: amLODIPine BESYLATE 5 MG TAB PO SCH (08:46)
[2022-01-12] MEDS: ENOXAPARIN SOD 40 MG/0.4 ML SYRINGE SC SCH (08:46)
[2022-01-12] MEDS: SERTRALINE HCL 50 MG TAB PO SCH (08:48)
[2022-01-12] MEDS ORDERED: ADENOSINE 87 MG in GIVE UN-DILUTED 0 ML IV ONE ×2 (09:15→10:15)
[2022-01-12 09:45] VITALS: BP 174/88
[2022-01-12 12:00] VITALS: BP 162/74
[2022-01-12 16:00] VITALS: BP 152/69
[2022-01-12] MEDS: SODIUM CHLORIDE 0.9% 1,000 ML IV SCH (17:05)
[2022-01-12] MEDS: ATORVASTATIN 20 MG TAB PO SCH (21:52)
[2022-01-12] MEDS: cloNIDine HCL 0.1 MG TAB PO PRN (21:53)
[2022-01-12 22:00] VITALS: BP 163/86
[2022-01-13] MEDS: cloNIDine HCL 0.1 MG TAB PO PRN ×2 (04:49→21:30)
[2022-01-13 05:00] VITALS: BP 171/86
[2022-01-13] MEDS: hydrALAZINE HCL 10 MG TAB PO SCH ×3 (06:01→17:29)
[2022-01-13] MEDS: HYDROcodone-ACET 5/325MG TAB PO PRN ×2 (06:02→21:29)
[2022-01-13] MEDS: ACCU-CHEK COMFORT CURVE STRIP VI SCH ×4 (06:43→22:55)
[2022-01-13] MEDS: InsuLIN REG 1unit/0.01ml Soln (100units/ml) SC SCH ×4 (06:45→22:00)
[2022-01-13] MEDS: CALCIUM W/VIT D (600MG/400IU) TAB PO SCH ×2 (08:30→17:29)
[2022-01-13 09:00] VITALS: BP 148/77
[2022-01-13] MEDS: FAMOTIDINE (10MG/ML) 2ML VL IV SCH (10:09)
[2022-01-13] MEDS: ASPirin-EC 81 mg tab PO SCH (10:10)
[2022-01-13] MEDS: amLODIPine BESYLATE 5 MG TAB PO SCH (10:11)
[2022-01-13] MEDS: METOPROLOL SUCCINATE XL 50 MG TAB PO SCH (10:11)
[2022-01-13] MEDS: LOSARTAN POTASSIUM 50 MG TAB PO SCH (10:11)
[2022-01-13] MEDS: ENOXAPARIN SOD 40 MG/0.4 ML SYRINGE SC SCH (10:12)
[2022-01-13] MEDS: SERTRALINE HCL 50 MG TAB PO SCH (10:12)
[2022-01-13 13:00] VITALS: BP 149/78
[2022-01-13] MEDS: SODIUM CHLORIDE 0.9% 1,000 ML IV SCH (15:00)
[2022-01-13 17:00] VITALS: BP 154/76
[2022-01-13] MEDS ORDERED: LORazepam 2MG/ML-1ML VIAL IV PRN (20:00)
[2022-01-13] MEDS: ATORVASTATIN 20 MG TAB PO SCH (21:29)
[2022-01-13 22:00] VITALS: BP 167/80
[2022-01-14] MEDS: hydrALAZINE HCL 10 MG TAB PO SCH ×5 (00:07→23:43)
[2022-01-14] MEDS: cloNIDine HCL 0.1 MG TAB PO PRN (04:25)
[2022-01-14 05:00] VITALS: BP 165/77
[2022-01-14] MEDS: InsuLIN REG 1unit/0.01ml Soln (100units/ml) SC SCH ×4 (06:32→21:56)
[2022-01-14] MEDS: ACCU-CHEK COMFORT CURVE STRIP VI SCH ×4 (06:32→21:53)
[2022-01-14 09:00] VITALS: BP 162/78
[2022-01-14] MEDS: CALCIUM W/VIT D (600MG/400IU) TAB PO SCH ×2 (10:14→17:53)
[2022-01-14] MEDS: FAMOTIDINE (10MG/ML) 2ML VL IV SCH (10:14)
[2022-01-14] MEDS: ASPirin-EC 81 mg tab PO SCH (10:14)
[2022-01-14] MEDS: SODIUM CHLORIDE 0.9% 1,000 ML IV SCH (10:14)
[2022-01-14] MEDS: LOSARTAN POTASSIUM 50 MG TAB PO SCH (10:14)
[2022-01-14] MEDS: SERTRALINE HCL 50 MG TAB PO SCH (10:15)
[2022-01-14] MEDS: METOPROLOL SUCCINATE XL 50 MG TAB PO SCH (10:15)
[2022-01-14] MEDS: amLODIPine BESYLATE 5 MG TAB PO SCH (10:15)
[2022-01-14] MEDS: ENOXAPARIN SOD 40 MG/0.4 ML SYRINGE SC SCH (10:16)
[2022-01-14] MEDS ORDERED: SERTRALINE HCL 50 MG TAB PO ONE (11:00)
[2022-01-14 13:00] VITALS: BP 162/83
[2022-01-14 17:00] VITALS: BP 174/105
[2022-01-14 18:49] VITALS: BP 159/98
[2022-01-14] MEDS: HYDROcodone-ACET 5/325MG TAB PO PRN (20:48)
[2022-01-14] MEDS: ATORVASTATIN 20 MG TAB PO SCH (21:45)
[2022-01-14] MEDS: LABETALOL HCL 5 MG/ML 4ML SYRINGE IV PRN (21:46)
[2022-01-14 22:00] VITALS: BP 155/77
[2022-01-15] VITALS (7 sets, daily range): BP systolic 132–183; BP diastolic 69–116
[2022-01-15] MEDS: hydrALAZINE HCL 10 MG TAB PO SCH ×3 (05:38→17:37)
[2022-01-15] MEDS: HYDROcodone-ACET 5/325MG TAB PO PRN ×2 (05:42→21:18)
[2022-01-15] MEDS: SODIUM CHLORIDE 0.9% 1,000 ML IV SCH (06:00)
[2022-01-15] MEDS: ACCU-CHEK COMFORT CURVE STRIP VI SCH ×4 (07:01→22:17)
[2022-01-15] MEDS: InsuLIN REG 1unit/0.01ml Soln (100units/ml) SC SCH ×4 (07:02→22:20)
[2022-01-15] MEDS: cloNIDine HCL 0.1 MG TAB PO PRN (07:03)
[2022-01-15] MEDS: LOSARTAN POTASSIUM 50 MG TAB PO SCH (09:41)
[2022-01-15] MEDS: FAMOTIDINE (10MG/ML) 2ML VL IV SCH (09:41)
[2022-01-15] MEDS: CALCIUM W/VIT D (600MG/400IU) TAB PO SCH ×2 (09:41→17:37)
[2022-01-15] MEDS: ASPirin-EC 81 mg tab PO SCH (09:41)
[2022-01-15] MEDS: amLODIPine BESYLATE 5 MG TAB PO SCH (09:42)
[2022-01-15] MEDS: CLOPIDOGREL BISULFATE 75 MG TAB PO SCH (09:42)
[2022-01-15] MEDS: ENOXAPARIN SOD 40 MG/0.4 ML SYRINGE SC SCH (09:42)
[2022-01-15] MEDS: METOPROLOL SUCCINATE XL 50 MG TAB PO SCH (09:42)
[2022-01-15] MEDS: SERTRALINE HCL 50 MG TAB PO SCH (09:42)
[2022-01-15] MEDS: ATORVASTATIN 20 MG TAB PO SCH (21:18)
[2022-01-16] VITALS (16 sets, daily range): BP systolic 117–194; BP diastolic 41–95
[2022-01-16] MEDS: SODIUM CHLORIDE 0.9% 1,000 ML IV SCH ×2 (02:00→22:00)
[2022-01-16] MEDS: HYDROcodone-ACET 5/325MG TAB PO PRN ×3 (03:45→20:08)
[2022-01-16] MEDS: hydrALAZINE HCL 10 MG TAB PO SCH ×5 (03:46→23:35)
[2022-01-16] MEDS: hydrALAZINE HCL 20 MG/ML VL IV PRN ×2 (06:41→21:16)
[2022-01-16] MEDS: InsuLIN REG 1unit/0.01ml Soln (100units/ml) SC SCH ×4 (07:00→21:32)
[2022-01-16 07:04] LABS: Basophils # (auto) 0.1 10 ^3/uL (0-0.2); Basophils % (auto) 0.6 % (0.0-2.0); Eosinophils # (auto) 0.5 10 ^3/uL (0-0.8); Eosinophils % (auto) 6.2 % (0.0-7.0); Hematocrit 36.8 % (36.0-46.0); Hemoglobin 12.9 g/dL (12.2-16.2); Lymphocytes # (auto) 1.8 10 ^3/uL (0.4-5.4); Lymphocytes % (auto) 21.2 % (10.0-50.0); Mean Corpuscular Hemoglobin 30.4 pg (28.0-32.0); Mean Corpuscular Volume 86.9 fL (80.0-100.0); Monocytes # (auto) 0.7 10 ^3/uL (0-1.3); Monocytes % (auto) 8.5 % (0.0-12.0); Neutrophils # (auto) 5.3 10 ^3/uL (1.6-8.6); Neutrophils % (auto) 63.5 % (37.0-80.0); Red Blood Cells 4.24 10^6/uL (4.0-5.20); Red Cell Distribution Width 13.6 % (11.8-14.3); White Blood Cell 8.4 10^3/uL (4.4-10.8)
[2022-01-16 07:22] LABS: INR 0.99 (0.9-1.15); Partial Thromboplastin Time 26.1 sec (23.6-33.0)
[2022-01-16 07:55] LABS: Albumin 3.3 g/dL (3.4-5.0); BUN/Creatinine Ratio 20.7; Calcium 10.1 mg/dL (8.5-10.1)
[2022-01-16 08:01] LABS: Bilirubin, Total 0.4 mg/dL (0.2-1.0); Total Protein 6.8 g/dL (6.4-8.2)
[2022-01-16] MEDS: ACCU-CHEK COMFORT CURVE STRIP VI SCH ×4 (08:45→21:15)
[2022-01-16] MEDS: FAMOTIDINE (10MG/ML) 2ML VL IV SCH (09:01)
[2022-01-16] MEDS: CALCIUM W/VIT D (600MG/400IU) TAB PO SCH ×2 (09:02→17:51)
[2022-01-16] MEDS: ASPirin-EC 81 mg tab PO SCH (09:03)
[2022-01-16] MEDS: LOSARTAN POTASSIUM 50 MG TAB PO SCH (09:03)
[2022-01-16] MEDS: amLODIPine BESYLATE 5 MG TAB PO SCH (09:04)
[2022-01-16] MEDS: CLOPIDOGREL BISULFATE 75 MG TAB PO SCH (09:04)
[2022-01-16] MEDS: ENOXAPARIN SOD 40 MG/0.4 ML SYRINGE SC SCH (09:05)
[2022-01-16] MEDS: METOPROLOL SUCCINATE XL 50 MG TAB PO SCH (09:05)
[2022-01-16] MEDS: SERTRALINE HCL 50 MG TAB PO SCH (09:05)
[2022-01-16] MEDS ORDERED: fentaNYL CITRATE 100 MCG/2 ML VL IV ONE (09:45)
[2022-01-16] MEDS ORDERED: LIDOCAINE VISCOUS 2% 15ML UD PO ONE (09:45)
[2022-01-16] MEDS ORDERED: MIDAZOLAM HCL 2MG/2ML 2ml VIAL (1mg/ml) IV ONE ×2 (09:45→10:00)
[2022-01-16] MEDS ORDERED: fentaNYL CITRATE 100 MCG/2 ML VL ONE (10:02)
[2022-01-16] MEDS ORDERED: MIDAZOLAM HCL 2MG/2ML 2ml VIAL (1mg/ml) ONE (10:02)
[2022-01-16] MEDS ORDERED: LIDOCAINE VISCOUS 2% 15ML UD ONE (10:02)
[2022-01-16] MEDS ORDERED: LIDOCAINE 2%HCL (LOCAL ANESTH.) INJ 10ml MDV ONE (10:08)
[2022-01-16] MEDS ORDERED: HEPARIN IN NS 1000Units/500mL 1,500 ML ONE (10:08)
[2022-01-16] MEDS ORDERED: IODIXANOL 320MG/ML 100ML BTL IV ONE (10:08)
[2022-01-16] MEDS ORDERED: HEPARIN SODIUM (PORCINE) 5000 UNITS/ML 1ML VIAL ONE (10:11)
[2022-01-16] MEDS ORDERED: VERAPAMIL 2.5MG/ML INJ 2ML VIAL IV ONE (10:11)
[2022-01-16] MEDS ORDERED: ANGIOMAX 250 MG VIAL IV ONE (10:11)
[2022-01-16] MEDS ORDERED: SODIUM CHL 0.9% 0 ML ONE (10:11)
[2022-01-16] MEDS: ATORVASTATIN 20 MG TAB PO SCH (21:15)
[2022-01-17] MEDS: cloNIDine HCL 0.1 MG TAB PO PRN ×2 (03:56→20:51)
[2022-01-17 04:45] VITALS: BP 186/74
[2022-01-17] MEDS: hydrALAZINE HCL 10 MG TAB PO SCH ×4 (05:40→23:56)
[2022-01-17] MEDS: InsuLIN REG 1unit/0.01ml Soln (100units/ml) SC SCH ×4 (06:28→22:03)
[2022-01-17] MEDS: ACCU-CHEK COMFORT CURVE STRIP VI SCH ×4 (06:28→22:02)
[2022-01-17] MEDS: CALCIUM W/VIT D (600MG/400IU) TAB PO SCH ×2 (08:50→18:00)
[2022-01-17 09:00] VITALS: BP 186/86
[2022-01-17] MEDS: SERTRALINE HCL 50 MG TAB PO SCH (09:30)
[2022-01-17] MEDS: ASPirin-EC 81 mg tab PO SCH (09:30)
[2022-01-17] MEDS: ENOXAPARIN SOD 40 MG/0.4 ML SYRINGE SC SCH (09:30)
[2022-01-17] MEDS: amLODIPine BESYLATE 5 MG TAB PO SCH (09:30)
[2022-01-17] MEDS: METOPROLOL SUCCINATE XL 50 MG TAB PO SCH (09:30)
[2022-01-17] MEDS: CLOPIDOGREL BISULFATE 75 MG TAB PO SCH (09:30)
[2022-01-17] MEDS: FAMOTIDINE (10MG/ML) 2ML VL IV SCH (09:30)
[2022-01-17] MEDS: LOSARTAN POTASSIUM 50 MG TAB PO SCH (09:30)
[2022-01-17] MEDS: HYDROcodone-ACET 5/325MG TAB PO PRN ×2 (11:48→20:58)
[2022-01-17 13:00] VITALS: BP_SYST 112; BP_SYST 156; BP_DIAS 60; BP_DIAS 74
[2022-01-17 17:29] VITALS: BP 143/76
[2022-01-17] MEDS: SODIUM CHLORIDE 0.9% 1,000 ML IV SCH (18:00)
[2022-01-17 22:00] VITALS: BP 175/85
[2022-01-17] MEDS: ATORVASTATIN 20 MG TAB PO SCH (22:02)
[2022-01-18] MEDS: HYDROcodone-ACET 5/325MG TAB PO PRN ×2 (03:18→14:26)
[2022-01-18 05:00] VITALS: BP 151/79
[2022-01-18] MEDS: ACCU-CHEK COMFORT CURVE STRIP VI SCH ×4 (06:15→22:00)
[2022-01-18] MEDS: InsuLIN REG 1unit/0.01ml Soln (100units/ml) SC SCH ×4 (06:15→22:00)
[2022-01-18] MEDS: hydrALAZINE HCL 10 MG TAB PO SCH ×4 (06:15→23:44)
[2022-01-18 08:30] VITALS: BP 179/82
[2022-01-18] MEDS: CALCIUM W/VIT D (600MG/400IU) TAB PO SCH ×2 (08:53→17:16)
[2022-01-18] MEDS: FAMOTIDINE (10MG/ML) 2ML VL IV SCH (08:53)
[2022-01-18] MEDS: amLODIPine BESYLATE 5 MG TAB PO SCH (08:54)
[2022-01-18] MEDS: LOSARTAN POTASSIUM 50 MG TAB PO SCH (08:54)
[2022-01-18] MEDS: ASPirin-EC 81 mg tab PO SCH (08:54)
[2022-01-18] MEDS: METOPROLOL SUCCINATE XL 50 MG TAB PO SCH (08:55)
[2022-01-18] MEDS: SERTRALINE HCL 50 MG TAB PO SCH (08:55)
[2022-01-18] MEDS: ENOXAPARIN SOD 40 MG/0.4 ML SYRINGE SC SCH (08:55)
[2022-01-18] MEDS: CLOPIDOGREL BISULFATE 75 MG TAB PO SCH (08:55)
[2022-01-18] MEDS: cloNIDine HCL 0.1 MG TAB PO PRN (12:00)
[2022-01-18 12:30] VITALS: BP 163/86
[2022-01-18] MEDS: hydrALAZINE HCL 20 MG/ML VL IV PRN (13:32)
[2022-01-18] MEDS: SODIUM CHLORIDE 0.9% 1,000 ML IV SCH (13:33)
[2022-01-18 17:00] VITALS: BP 139/61
[2022-01-18 22:00] VITALS: BP 142/79
[2022-01-18] MEDS: ATORVASTATIN 20 MG TAB PO SCH (23:21)
[2022-01-19 05:00] VITALS: BP 150/77
[2022-01-19] MEDS: hydrALAZINE HCL 10 MG TAB PO SCH ×3 (05:56→17:01)
[2022-01-19] MEDS: hydrALAZINE HCL 20 MG/ML VL IV PRN (05:56)
[2022-01-19] MEDS: ACCU-CHEK COMFORT CURVE STRIP VI SCH ×3 (06:22→17:01)
[2022-01-19] MEDS: InsuLIN REG 1unit/0.01ml Soln (100units/ml) SC SCH ×3 (06:22→17:00)
[2022-01-19 09:00] VITALS: BP 164/88
[2022-01-19] MEDS: FAMOTIDINE (10MG/ML) 2ML VL IV SCH (09:35)
[2022-01-19] MEDS: ENOXAPARIN SOD 40 MG/0.4 ML SYRINGE SC SCH (09:35)
[2022-01-19] MEDS: CALCIUM W/VIT D (600MG/400IU) TAB PO SCH ×2 (09:35→17:01)
[2022-01-19] MEDS: ASPirin-EC 81 mg tab PO SCH (09:36)
[2022-01-19] MEDS: SODIUM CHLORIDE 0.9% 1,000 ML IV SCH (09:36)
[2022-01-19] MEDS: CLOPIDOGREL BISULFATE 75 MG TAB PO SCH (09:36)
[2022-01-19] MEDS: SERTRALINE HCL 50 MG TAB PO SCH (09:36)
[2022-01-19] MEDS: LOSARTAN POTASSIUM 50 MG TAB PO SCH (09:37)
[2022-01-19] MEDS: amLODIPine BESYLATE 5 MG TAB PO SCH (09:38)
[2022-01-19] MEDS: METOPROLOL SUCCINATE XL 50 MG TAB PO SCH (09:38)
[2022-01-19 13:00] VITALS: BP 159/78
[2022-01-19] MEDS: HYDROcodone-ACET 5/325MG TAB PO PRN (16:18)
[2022-01-19 16:31] VITALS: BP 172/74
== END 2022-01-19 19:35 | DRG 192 ==
LOC: EDBD 08:54 → ER 08:54 → TELE 16:52 → TELE-EAST 19:42
PROVIDERS: ADMIT Hospitalist; ATTEND Family Medicine
PROC: 4A023N7 Measurement of Cardiac Sampling and Pressure, Left Heart, Percutaneous Approach (ICD-10-PCS; principal; 2022-01-16)
PROC: B211YZZ Fluoroscopy of Multiple Coronary Arteries using Other Contrast (ICD-10-PCS; 2022-01-16)
PROC: B215YZZ Fluoroscopy of Left Heart using Other Contrast (ICD-10-PCS; 2022-01-16)
PROC: B246ZZ4 Ultrasonography of Right and Left Heart, Transesophageal (ICD-10-PCS; 2022-01-16)
DX: I16.1 Hypertensive emergency (principal); I63.9 Cerebral infarction, unspecified; N17.0 Acute kidney failure with tubular necrosis; I21.A1 Myocardial infarction type 2; I50.33 Acute on chronic diastolic (congestive) heart failure; I69.354 Hemiplegia and hemiparesis following cerebral infarction affecting left non-dominant side; E11.22 Type 2 diabetes mellitus with diabetic chronic kidney disease; E66.01 Morbid (severe) obesity due to excess calories; E78.5 Hyperlipidemia, unspecified; E83.52 Hypercalcemia; E87.6 Hypokalemia; M81.0 Age-related osteoporosis without current pathological fracture; N18.31 Chronic kidney disease, stage 3a; I25.10 Atherosclerotic heart disease of native coronary artery without angina pectoris; F17.210 Nicotine dependence, cigarettes, uncomplicated; Z20.822 Contact with and (suspected) exposure to COVID-19; I13.0 Hypertensive heart and chronic kidney disease with heart failure and stage 1 through stage 4 chronic kidney disease, or unspecified chronic kidney disease; E11.40 Type 2 diabetes mellitus with diabetic neuropathy, unspecified; E11.21 Type 2 diabetes mellitus with diabetic nephropathy; R47.9 Unspecified speech disturbances; M48.56XA Collapsed vertebra, not elsewhere classified, lumbar region, initial encounter for fracture; Z79.02 Long term (current) use of antithrombotics/antiplatelets; Z79.82 Long term (current) use of aspirin; Z79.84 Long term (current) use of oral hypoglycemic drugs; Z79.899 Other long term (current) drug therapy; Z82.49 Family history of ischemic heart disease and other diseases of the circulatory system; Z83.3 Family history of diabetes mellitus; Z85.038 Personal history of other malignant neoplasm of large intestine; Z90.710 Acquired absence of both cervix and uterus; Z91.19 Patient's noncompliance with other medical treatment and regimen; Z68.35 Body mass index [BMI] 35.0-35.9, adult
CPT/HCPCS: 36415; 70450; 70551; 71250; 74176; 78452; 80048; 80053; 80061; 82306; 82550; 82728; 82962; 83036; 83615; 83690; 83735; 83880; 84100; 84443; 84484; 84550; 85025; 85379; 85610; 85652; 85730; 86141; 86850; 86900; 86901; 87040; 87070; 87077; 87086; 87186; 87205; 93005; 93017; 93306; 93312; 93458; 93886; 96361; 96374; 96375; 96376; 97110; 97116; 97163; 97530; 99152; 99153; G0378; J0153; J1815; J2001; J2250; J2405; J3490; Q9967

== ENCOUNTER 2022-12-11 14:42 | Inpatient (IN) | payer MEDICAID ==
[~2022-12-11] VITALS: Ht 165.1 cm; Wt 97.7 kg
[~2022-12-11 14:42] MED LIST changes: -CLOP75TA70 PO; +METF-370 PO; +MIN25T PO; -SERT25TA14 PO
[2022-12-11 15:57] LABS: Urine Bacteria MOD /hpf (None Seen); Urine Blood Negative /uL (Negative); Urine Specific Gravity 1.017 (1.001-1.035); Urine WBC 22 /hpf (0 - 5)
[2022-12-11] MEDS ORDERED: SODIUM CHLORIDE 0.9% 1,000 ML IV ONE (17:30)
[2022-12-11] MEDS ORDERED: ONDANSETRON HCL 4 MG/2 ML VIAL IV ONE (17:30)
[2022-12-11] MEDS ORDERED: MORPHINE SULFATE INJ 2 MG/ml SYRG IV ONE (17:30)
[2022-12-11 18:02] LABS: Basophils # (auto) 0 10 ^3/uL (0-0.2); Basophils % (auto) 0.1 % (0.0-2.0); Eosinophils # (auto) 0.2 10 ^3/uL (0-0.8); Hematocrit 44.2 % (36.0-46.0); Hemoglobin 15.4 g/dL (12.2-16.2); Lymphocytes % (auto) 5.5 % (10.0-50.0); Mean Corpuscular Hemoglobin 29.4 pg (28.0-32.0); Mean Corpuscular Hgb Conc. 34.9 g/dL (32.0-36.0); Mean Corpuscular Volume 84.2 fL (80.0-100.0); Monocytes % (auto) 5.3 % (0.0-12.0); Neutrophils # (auto) 16.1 10 ^3/uL (1.6-8.6); Neutrophils % (auto) 88.1 % (37.0-80.0); Red Blood Cells 5.24 10^6/uL (4.0-5.20); Red Cell Distribution Width 13.3 % (11.8-14.3); White Blood Cell 18.2 10^3/uL (4.4-10.8)
[2022-12-11 18:23] LABS: Albumin 3.9 g/dL (3.4-5.0); Calcium 11.3 mg/dL (8.5-10.1); Potassium 3.2 mmol/L (3.5-5.1)
[2022-12-11 18:27] LABS: BUN/Creatinine Ratio 23.2 (10.0-20.0); Bilirubin, Total 0.8 mg/dL (0.2-1.0); Total Protein 8.3 g/dL (6.4-8.2)
[2022-12-11] MEDS ORDERED: cefTRIAXone 1GM/50ML D5W 50 ML IV ONE (18:30)
[2022-12-11] MEDS ORDERED: metroNIDAZOLE 500MG/100ML 100 ML IV ONE (18:30)
[2022-12-11] MEDS ORDERED: POTASSIUM CHL 20MEQ/100ML 100 ML IV ONE (21:45)
[2022-12-11] MEDS ORDERED: DEXTROSE (50%) 50ML SYRG IV PRN (21:45)
[2022-12-11 22:07] LABS: Magnesium 2.4 mg/dL (1.6-2.6); Phosphorus 3.7 mg/dL (2.5-4.90)
[2022-12-11 22:17] LABS: Creatinine, Urine 167 mg/dL (30.0-125.0); Sodium Urine < 5 mmol/L (40-220)
[2022-12-11] MEDS: SODIUM CHLORIDE 0.9% 1,000 ML IV SCH (22:28)
[2022-12-12] MEDS: ONDANSETRON HCL 4 MG/2 ML VIAL IV PRN ×2 (00:08→04:03)
[2022-12-12] MEDS: MORPHINE SULFATE INJ 2 MG/ml SYRG IV PRN ×3 (00:09→21:52)
[2022-12-12] MEDS: ACCU-CHEK COMFORT CURVE STRIP VI SCH ×4 (00:53→19:01)
[2022-12-12] MEDS: InsuLIN REG 1unit/0.01ml Soln (100units/ml) SC SCH ×4 (00:53→19:13)
[2022-12-12] MEDS: hydrALAZINE HCL 20 MG/ML VL IV SCH ×4 (01:23→19:02)
[2022-12-12] MEDS: SODIUM CHLORIDE 0.9% 1,000 ML IV SCH (05:35)
[2022-12-12 06:31] LABS: Basophils # (auto) 0 10 ^3/uL (0-0.2); Basophils % (auto) 0.2 % (0.0-2.0); Eosinophils # (auto) 0.1 10 ^3/uL (0-0.8); Eosinophils % (auto) 0.4 % (0.0-7.0); Hematocrit 43.1 % (36.0-46.0); Hemoglobin 14.8 g/dL (12.2-16.2); Lymphocytes # (auto) 0.7 10 ^3/uL (0.4-5.4); Lymphocytes % (auto) 4.7 % (10.0-50.0); Mean Corpuscular Hemoglobin 29.5 pg (28.0-32.0); Mean Corpuscular Hgb Conc. 34.3 g/dL (32.0-36.0); Mean Corpuscular Volume 85.8 fL (80.0-100.0); Monocytes # (auto) 1.1 10 ^3/uL (0-1.3); Monocytes % (auto) 7.9 % (0.0-12.0); Neutrophils % (auto) 86.8 % (37.0-80.0); Red Blood Cells 5.02 10^6/uL (4.0-5.20); Red Cell Distribution Width 13.5 % (11.8-14.3); White Blood Cell 13.8 10^3/uL (4.4-10.8)
[2022-12-12 06:54] LABS: Albumin 3.4 g/dL (3.4-5.0); BUN/Creatinine Ratio 26.5 (10.0-20.0); Bilirubin, Total 0.7 mg/dL (0.2-1.0); Calcium 10.8 mg/dL (8.5-10.1); Total Protein 7.5 g/dL (6.4-8.2)
[2022-12-12 07:01] LABS: Potassium 2.6 mmol/L (3.5-5.1)
[2022-12-12] MEDS ORDERED: POTASSIUM CHL 20MEQ/100ML 100 ML IV ONE (07:30)
[2022-12-12] MEDS: PANTOPRAZOLE 40 MG/10 ML VIAL INJ IV SCH (11:01)
[2022-12-12] MEDS: ENOXAPARIN SOD 40 MG/0.4 ML SYRINGE SC SCH (11:01)
[2022-12-12] MEDS ORDERED: cefTRIAXone 1GM/50ML D5W 50 ML IV ONE (13:15)
[2022-12-12] MEDS ORDERED: SODIUM CHLORIDE 0.9% 1,000 ML IV ONE (14:00)
[2022-12-12] MEDS: metroNIDAZOLE 500MG/100ML 100 ML IV SCH ×2 (14:00→21:51)
[2022-12-12] MEDS: SOD CHL 0.9%/ KCL 40MEQ 1,000 ML IV SCH (14:57)
[2022-12-12 21:25] VITALS: BP 165/82
[2022-12-13] VITALS (7 sets, daily range): BP systolic 148–178; BP diastolic 80–95
[2022-12-13] MEDS: ACCU-CHEK COMFORT CURVE STRIP VI SCH ×4 (00:03→18:00)
[2022-12-13] MEDS: ONDANSETRON HCL 4 MG/2 ML VIAL IV PRN (00:25)
[2022-12-13] MEDS: MORPHINE SULFATE INJ 2 MG/ml SYRG IV PRN ×3 (02:17→19:26)
[2022-12-13] MEDS: METOPROLOL TARTRATE 1MG/1ML-5ML VIAL IV PRN (05:37)
[2022-12-13] MEDS: metroNIDAZOLE 500MG/100ML 100 ML IV SCH ×3 (05:59→21:44)
[2022-12-13] MEDS: InsuLIN REG 1unit/0.01ml Soln (100units/ml) SC SCH ×4 (05:59→18:40)
[2022-12-13] MEDS: hydrALAZINE HCL 20 MG/ML VL IV SCH ×4 (06:47→18:40)
[2022-12-13] MEDS: cefTRIAXone 1GM/50ML D5W 50 ML IV SCH (09:53)
[2022-12-13] MEDS: PANTOPRAZOLE 40 MG/10 ML VIAL INJ IV SCH (09:53)
[2022-12-13] MEDS: ENOXAPARIN SOD 40 MG/0.4 ML SYRINGE SC SCH (09:53)
[2022-12-13] MEDS: SOD CHL 0.9%/ KCL 40MEQ 1,000 ML IV SCH ×3 (10:02→20:00)
[2022-12-13] MEDS: POTASSIUM CHL 20MEQ/100ML 100 ML IV SCH ×2 (18:40→21:44)
[2022-12-14] MEDS: hydrALAZINE HCL 20 MG/ML VL IV SCH ×4 (00:07→18:07)
[2022-12-14] MEDS: ACCU-CHEK COMFORT CURVE STRIP VI SCH ×4 (00:08→18:07)
[2022-12-14] MEDS: MORPHINE SULFATE INJ 2 MG/ml SYRG IV PRN ×2 (00:08→05:13)
[2022-12-14] MEDS: POTASSIUM CHL 20MEQ/100ML 100 ML IV SCH (00:12)
[2022-12-14 05:00] VITALS: BP 180/95
[2022-12-14] MEDS: metroNIDAZOLE 500MG/100ML 100 ML IV SCH ×3 (05:14→22:12)
[2022-12-14] MEDS: SOD CHL 0.9%/ KCL 40MEQ 1,000 ML IV SCH ×4 (05:14→18:28)
[2022-12-14] MEDS: InsuLIN REG 1unit/0.01ml Soln (100units/ml) SC SCH ×4 (05:27→18:00)
[2022-12-14 06:04] LABS: Basophils # (auto) 0 10 ^3/uL (0-0.2); Basophils % (auto) 0.4 % (0.0-2.0); Eosinophils # (auto) 0.2 10 ^3/uL (0-0.8); Eosinophils % (auto) 2.2 % (0.0-7.0); Hematocrit 40.9 % (36.0-46.0); Hemoglobin 13.7 g/dL (12.2-16.2); Lymphocytes # (auto) 0.9 10 ^3/uL (0.4-5.4); Lymphocytes % (auto) 10.3 % (10.0-50.0); Mean Corpuscular Hemoglobin 29.7 pg (28.0-32.0); Mean Corpuscular Hgb Conc. 33.5 g/dL (32.0-36.0); Mean Corpuscular Volume 88.6 fL (80.0-100.0); Monocytes # (auto) 1.1 10 ^3/uL (0-1.3); Neutrophils # (auto) 6.3 10 ^3/uL (1.6-8.6); Neutrophils % (auto) 74.1 % (37.0-80.0); Nucleated Red Blood Cells % 0.2 %; Red Blood Cells 4.61 10^6/uL (4.0-5.20); Red Cell Distribution Width 13.2 % (11.8-14.3); White Blood Cell 8.5 10^3/uL (4.4-10.8)
[2022-12-14 06:20] LABS: Calcium 10.3 mg/dL (8.5-10.1); Potassium 3.6 mmol/L (3.5-5.1)
[2022-12-14 06:26] LABS: BUN/Creatinine Ratio 16.4 (10.0-20.0); Bilirubin, Total 0.5 mg/dL (0.2-1.0); Total Protein 6.9 g/dL (6.4-8.2)
[2022-12-14 08:52] VITALS: BP 173/90
[2022-12-14] MEDS: cefTRIAXone 1GM/50ML D5W 50 ML IV SCH (09:37)
[2022-12-14] MEDS: ENOXAPARIN SOD 40 MG/0.4 ML SYRINGE SC SCH (09:37)
[2022-12-14] MEDS: PANTOPRAZOLE 40 MG/10 ML VIAL INJ IV SCH (09:37)
[2022-12-14] MEDS: METOPROLOL TARTRATE 1MG/1ML-5ML VIAL IV PRN (09:38)
[2022-12-14 12:37] VITALS: BP 188/98
[2022-12-14] MEDS: cloNIDine HCL 0.1 MG TAB PO PRN ×3 (12:37→22:11)
[2022-12-14] MEDS ORDERED: GASTROGRAFIN 120 ML SOL ONE (14:38)
[2022-12-14 19:50] VITALS: BP 172/93
[2022-12-14] MEDS: ONDANSETRON HCL 4 MG/2 ML VIAL IV PRN ×2 (19:56→23:58)
[2022-12-14] MEDS: ACETAMINOPHEN 325 MG TAB PO PRN (21:43)
[2022-12-14 22:00] VITALS: BP 172/93
[2022-12-15] MEDS: hydrALAZINE HCL 20 MG/ML VL IV SCH ×5 (00:03→23:32)
[2022-12-15] MEDS: ACCU-CHEK COMFORT CURVE STRIP VI SCH ×5 (00:06→23:33)
[2022-12-15] MEDS: ONDANSETRON HCL 4 MG/2 ML VIAL IV PRN (03:55)
[2022-12-15] MEDS: ACETAMINOPHEN 325 MG TAB PO PRN ×2 (03:55→23:33)
[2022-12-15 05:00] VITALS: BP 141/85
[2022-12-15] MEDS: InsuLIN REG 1unit/0.01ml Soln (100units/ml) SC SCH ×5 (05:38→23:33)
[2022-12-15] MEDS: metroNIDAZOLE 500MG/100ML 100 ML IV SCH ×3 (05:38→21:28)
[2022-12-15 06:30] LABS: Basophils # (auto) 0.1 10 ^3/uL (0-0.2); Basophils % (auto) 0.6 % (0.0-2.0); Eosinophils # (auto) 0.3 10 ^3/uL (0-0.8); Eosinophils % (auto) 3.8 % (0.0-7.0); Hematocrit 41.8 % (36.0-46.0); Lymphocytes # (auto) 0.9 10 ^3/uL (0.4-5.4); Lymphocytes % (auto) 10.4 % (10.0-50.0); Mean Corpuscular Hemoglobin 29.6 pg (28.0-32.0); Mean Corpuscular Hgb Conc. 33.4 g/dL (32.0-36.0); Mean Corpuscular Volume 88.6 fL (80.0-100.0); Monocytes # (auto) 1.2 10 ^3/uL (0-1.3); Monocytes % (auto) 13.3 % (0.0-12.0); Neutrophils # (auto) 6.5 10 ^3/uL (1.6-8.6); Neutrophils % (auto) 71.9 % (37.0-80.0); Red Blood Cells 4.72 10^6/uL (4.0-5.20); Red Cell Distribution Width 13.5 % (11.8-14.3)
[2022-12-15 06:46] LABS: Albumin 3.2 g/dL (3.4-5.0); Calcium 10.7 mg/dL (8.5-10.1); Potassium 3.8 mmol/L (3.5-5.1)
[2022-12-15 06:51] LABS: BUN/Creatinine Ratio 15.4 (10.0-20.0); Bilirubin, Total 0.5 mg/dL (0.2-1.0); Total Protein 6.7 g/dL (6.4-8.2)
[2022-12-15 09:00] VITALS: BP 162/96
[2022-12-15] MEDS: PANTOPRAZOLE 40 MG/10 ML VIAL INJ IV SCH (10:30)
[2022-12-15] MEDS: ENOXAPARIN SOD 40 MG/0.4 ML SYRINGE SC SCH (10:30)
[2022-12-15] MEDS: cefTRIAXone 1GM/50ML D5W 50 ML IV SCH (10:30)
[2022-12-15 12:49] VITALS: BP 180/112
[2022-12-15 16:59] VITALS: BP 169/98
[2022-12-15] MEDS: cloNIDine HCL 0.1 MG TAB PO PRN (18:59)
[2022-12-15 22:00] VITALS: BP 155/91
[2022-12-15] MEDS: SOD CHL 0.9%/ KCL 40MEQ 1,000 ML IV SCH (22:38)
[2022-12-16] MEDS: cloNIDine HCL 0.1 MG TAB PO PRN (02:31)
[2022-12-16] MEDS: InsuLIN REG 1unit/0.01ml Soln (100units/ml) SC SCH (05:27)
[2022-12-16] MEDS: metroNIDAZOLE 500MG/100ML 100 ML IV SCH ×3 (05:27→21:21)
[2022-12-16] MEDS: ACCU-CHEK COMFORT CURVE STRIP VI SCH (05:27)
[2022-12-16 05:28] VITALS: BP 155/82
[2022-12-16] MEDS: hydrALAZINE HCL 20 MG/ML VL IV SCH ×2 (05:28→05:36)
[2022-12-16] MEDS: ACETAMINOPHEN 325 MG TAB PO PRN (05:28)
[2022-12-16] MEDS: SOD CHL 0.9%/ KCL 40MEQ 1,000 ML IV SCH ×2 (08:00→18:00)
[2022-12-16 08:56] LABS: Basophils # (auto) 0 10 ^3/uL (0-0.2); Basophils % (auto) 0.5 % (0.0-2.0); Eosinophils # (auto) 0.4 10 ^3/uL (0-0.8); Eosinophils % (auto) 5.1 % (0.0-7.0); Hematocrit 38.1 % (36.0-46.0); Lymphocytes # (auto) 0.9 10 ^3/uL (0.4-5.4); Mean Corpuscular Hemoglobin 29.5 pg (28.0-32.0); Mean Corpuscular Volume 86.8 fL (80.0-100.0); Monocytes # (auto) 0.6 10 ^3/uL (0-1.3); Monocytes % (auto) 8.1 % (0.0-12.0); Neutrophils # (auto) 5.9 10 ^3/uL (1.6-8.6); Neutrophils % (auto) 75.3 % (37.0-80.0); Nucleated Red Blood Cells % 0.1 %; Red Blood Cells 4.39 10^6/uL (4.0-5.20); Red Cell Distribution Width 13.4 % (11.8-14.3); White Blood Cell 7.9 10^3/uL (4.4-10.8)
[2022-12-16 09:00] VITALS: BP 154/92
[2022-12-16 09:19] LABS: Albumin 2.8 g/dL (3.4-5.0); Calcium 9.2 mg/dL (8.5-10.1); Potassium 3.7 mmol/L (3.5-5.1)
[2022-12-16 09:23] LABS: BUN/Creatinine Ratio 11.6 (10.0-20.0); Bilirubin, Total 0.3 mg/dL (0.2-1.0); Total Protein 5.7 g/dL (6.4-8.2)
[2022-12-16] MEDS: ENOXAPARIN SOD 40 MG/0.4 ML SYRINGE SC SCH (09:30)
[2022-12-16] MEDS: cefTRIAXone 1GM/50ML D5W 50 ML IV SCH (09:30)
[2022-12-16] MEDS: PANTOPRAZOLE 40 MG/10 ML VIAL INJ IV SCH (09:30)
[2022-12-16] MEDS ORDERED: METOPROLOL TARTRATE 50 MG TAB PO ONE (12:00)
[2022-12-16] MEDS ORDERED: LOSARTAN POTASSIUM 50 MG TAB PO ONE (12:00)
[2022-12-16] MEDS ORDERED: MINOXIDIL 2.5 MG TAB PO ONE (12:00)
[2022-12-16 13:00] VITALS: BP 135/72
[2022-12-16] MEDS ORDERED: LIDOCAINE VISCOUS 2% 15ML UD ONE (15:55)
[2022-12-16] MEDS: diphenhdrAMINE HCL 50 MG/1 ML VL ONE ×2 (16:18→16:19)
[2022-12-16] MEDS: MIDAZOLAM HCL 2MG/2ML 2ml VIAL (1mg/ml) ONE ×2 (16:18→16:21)
[2022-12-16] MEDS: fentaNYL CITRATE 100 MCG/2 ML VL ONE ×2 (16:18→16:21)
[2022-12-16] MEDS ORDERED: LOPERAMIDE HCL 2 MG CAP/TAB PO PRN (20:15)
[2022-12-16] MEDS ORDERED: LOPERAMIDE HCL 2 MG CAP/TAB PO ONE (20:15)
[2022-12-16] MEDS ORDERED: ONDANSETRON HCL 4 MG/2 ML VIAL IV PRN (20:15)
[2022-12-16] MEDS: metFORMIN HYDROCHLORIDE 500 MG TAB PO SCH (21:41)
[2022-12-16] MEDS: METOPROLOL TARTRATE 50 MG TAB PO SCH (21:43)
[2022-12-17] MEDS: SOD CHL 0.9%/ KCL 40MEQ 1,000 ML IV SCH ×2 (04:00→14:00)
[2022-12-17 05:00] VITALS: BP 179/97
[2022-12-17] MEDS: metroNIDAZOLE 500MG/100ML 100 ML IV SCH ×3 (05:23→21:32)
[2022-12-17] MEDS: cloNIDine HCL 0.1 MG TAB PO PRN (05:40)
[2022-12-17 09:00] VITALS: BP 182/95
[2022-12-17] MEDS: ASPirin 81 mg TAB PO SCH (09:30)
[2022-12-17] MEDS: MINOXIDIL 2.5 MG TAB PO SCH (09:30)
[2022-12-17] MEDS: cefTRIAXone 1GM/50ML D5W 50 ML IV SCH (09:30)
[2022-12-17] MEDS: LOSARTAN POTASSIUM 50 MG TAB PO SCH (09:30)
[2022-12-17] MEDS: metFORMIN HYDROCHLORIDE 500 MG TAB PO SCH ×2 (09:30→21:32)
[2022-12-17] MEDS: METOPROLOL TARTRATE 50 MG TAB PO SCH ×2 (09:30→21:33)
[2022-12-17] MEDS: PANTOPRAZOLE 40 MG/10 ML VIAL INJ IV SCH (09:30)
[2022-12-17] MEDS: HCTZ 25 MG TAB PO SCH (09:30)
[2022-12-17 13:00] VITALS: BP 131/72
[2022-12-17 16:48] VITALS: BP 153/85
[2022-12-17] MEDS: ACETAMINOPHEN 325 MG TAB PO PRN (21:42)
[2022-12-17 23:18] VITALS: BP 150/91
[2022-12-18 05:03] VITALS: BP 120/87
[2022-12-18] MEDS: metroNIDAZOLE 500MG/100ML 100 ML IV SCH (05:35)
[2022-12-18 08:30] VITALS: BP 141/86
[2022-12-18] MEDS: PANTOPRAZOLE 40 MG/10 ML VIAL INJ IV SCH (10:28)
[2022-12-18] MEDS: SOD CHL 0.9%/ KCL 40MEQ 1,000 ML IV SCH ×2 (10:28)
[2022-12-18] MEDS: ASPirin 81 mg TAB PO SCH (10:28)
[2022-12-18] MEDS: cefTRIAXone 1GM/50ML D5W 50 ML IV SCH (10:28)
[2022-12-18] MEDS: ENOXAPARIN SOD 40 MG/0.4 ML SYRINGE SC SCH (10:29)
[2022-12-18] MEDS: HCTZ 25 MG TAB PO SCH (10:29)
[2022-12-18] MEDS: metFORMIN HYDROCHLORIDE 500 MG TAB PO SCH (10:29)
[2022-12-18] MEDS: LOSARTAN POTASSIUM 50 MG TAB PO SCH (10:30)
[2022-12-18] MEDS: METOPROLOL TARTRATE 50 MG TAB PO SCH (10:30)
[2022-12-18] MEDS ORDERED: METR500T PO (10:36)
[2022-12-18] MEDS ORDERED: PANT40T PO (10:36)
[2022-12-18] MEDS ORDERED: LEVO500T31 PO (10:36)
[2022-12-18] MEDS: MINOXIDIL 2.5 MG TAB PO SCH (10:58)
[2022-12-18 11:16] VITALS: BP 141/86
== END 2022-12-18 13:49 | disposition home or self-care (01) | DRG 720 ==
LOC: ER 14:42 → TELE 21:16 → TELE-WESTW 12-12 21:10
PROVIDERS: ADMIT Nurse Practitioner Family; ATTEND Family Medicine
PROC: 0D9670Z Drainage of Stomach with Drainage Device, Via Natural or Artificial Opening (ICD-10-PCS; 2022-12-11)
PROC: 0DB68ZX Excision of Stomach, Via Natural or Artificial Opening Endoscopic, Diagnostic (ICD-10-PCS; 2022-12-16)
PROC: 0DB38ZX Excision of Lower Esophagus, Via Natural or Artificial Opening Endoscopic, Diagnostic (ICD-10-PCS; 2022-12-16)
PROC: 0DB98ZX Excision of Duodenum, Via Natural or Artificial Opening Endoscopic, Diagnostic (ICD-10-PCS; principal; 2022-12-16 16:20)
DX: A41.9 Sepsis, unspecified organism (principal); N17.0 Acute kidney failure with tubular necrosis; R65.21 Severe sepsis with septic shock; K43.0 Incisional hernia with obstruction, without gangrene; E87.1 Hypo-osmolality and hyponatremia; K22.10 Ulcer of esophagus without bleeding; N39.0 Urinary tract infection, site not specified; E11.65 Type 2 diabetes mellitus with hyperglycemia; Z20.822 Contact with and (suspected) exposure to COVID-19; B96.20 Unspecified Escherichia coli [E. coli] as the cause of diseases classified elsewhere; Z16.12 Extended spectrum beta lactamase (ESBL) resistance; K22.82 Esophagogastric junction polyp; E83.52 Hypercalcemia; E86.0 Dehydration; E87.6 Hypokalemia; I10 Essential (primary) hypertension; K31.9 Disease of stomach and duodenum, unspecified; K29.70 Gastritis, unspecified, without bleeding; K44.9 Diaphragmatic hernia without obstruction or gangrene; F17.210 Nicotine dependence, cigarettes, uncomplicated; Z90.49 Acquired absence of other specified parts of digestive tract; Z90.710 Acquired absence of both cervix and uterus; Z86.73 Personal history of transient ischemic attack (TIA), and cerebral infarction without residual deficits; Z79.84 Long term (current) use of oral hypoglycemic drugs
CPT/HCPCS: 36415; 43239; 71045; 74018; 74176; 74250; 76705; 80053; 81001; 82570; 82962; 83036; 83605; 83735; 84100; 84132; 84300; 85025; 87040; 87086; 87088; 87186; 87426; 97163; C9113; G0378; J0696; J1815; J2250; J2405; J3480; J3490

== ENCOUNTER 2024-09-06 15:07 | Emergency (ER) | payer MEDICAID ==
[~2024-09-06] VITALS: Ht 167.6 cm; Wt 88.9 kg
[~2024-09-06 15:07] MED LIST changes: +LEVO500T31 PO; -LOSA-39 PO; +LOSA-535 PO; +METR500T PO; +PANT40T PO
--- NOTE | 2024-09-06 15:38 | ECG ---
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
--- NOTE | 2024-09-06 17:06 | ED.PDOC ---
History of Present Illness HPI Comments 64Y F with PMHx HTN, CVA with lt sided deficits, and colon CA presents to ED for chief complaint abnormal labs. Per pt, was referred to ED by PCP for elevated calcium level of 11.2. Pt c/o low back pain x3 months that has worsened in the last few days. Current pain level is 9/10. Pt denies n/v/d, chest pain, SOB, fever, and cough. Pt smokes cigarettes occasionally. Pt denies alcohol and illicit drug use. No known allergies. Chief Complaint: Abnormal LAB's Time Seen by MD: 16:55 Primary Care Provider: LUISA Reviewed Notes: Nurses Notes, Medications, Allergies Allergies: Coded Allergies: NO KNOWN ALLERGIES (Unverified , 08/16/24) Home Meds Active Scripts Pantoprazole Sodium Sesquihydr (Pantoprazole Sodium) 40 Mg Tab, 40 MG PO DAILY, #30 TAB Prov:BRENT LA MD 12/18/22 Metronidazole (Flagyl) 500 Mg Tab, 500 MG PO TID, #21 TAB Prov:BRENT LA MD 12/18/22 Levofloxacin (Levaquin) 500 Mg Tab, 500 MG PO DAILY, #7 TAB Prov:BRENT LA MD 12/18/22 Aspirin (Aspir-Low Ec) 81 Mg Tb, 81 MG PO DAILY, #30 Prov:CHELY NIXON MD 07/30/17 Reported Medications Minoxidil (Loniten) 2.5 Mg Tb, 1 TAB PO DAILY, #180 TAB 1 Refill 01/09/22 Metformin Hydrochloride (Metformin Hcl) 500 Mg Tab, 500 MG PO IBID for 30 Days, MG 01/09/22 Lidocaine (Lidocaine) 5 % Pad, 1 PATCH TOP DAILYPRN 06/26/21 Hctz (Hydrochlorothiazide) 25 Mg Tab, 2 TAB PO DAILY 06/26/21 Losartan Potassium (Losartan Potassium) 100 Mg Tab, 1 TAB PO DAILY 06/26/21 Metoprolol Tartrate (LOPRESSOR TABLET) 50 Mg Tb, 50 TAB PO BID 06/26/21 Information Source: Patient Mode of Arrival: Ambulatory Severity: Mild Timing: Months Duration: Since onset Past Medical History PAST MEDICAL HISTORY: Cancer, CVA, HTN, TIA Surgical History: Appendectomy, Cholecystectomy, , Hysterectomy Surgical History (Other): lt knee surgery [employer] History: No Pertinent [employer] History Family History Family History: Family hx of HTN, Family hx of Kidney dee, Family hx of liver dee (cirrhosis) Social History Smoker: Cigarettes, Less Than 1 Pack/Day Alcohol: Denies ETOH Use Drugs: Denies Drug Use Lives In: Home Constitutional: denies: chills, diaphoresis, fatigue, fever, malaise, sweats, weakness, others EENTM: denies: blurred vision, double vision, ear bleeding, ear discharge, ear drainage, ear pain, ear ringing, eye pain, eye redness, hearing loss, mouth pain, mouth swelling, nasal discharge, nose bleeding, nose congestion, nose pain, photophobia, tearing, throat pain, throat swelling, voice changes, others Respiratory: denies: cough, hemoptysis, orthopnea, SOB at rest, shortness of breath, SOB with excertion, stridor, wheezing, others Cardiovascular: denies: chest pain, dizzy spells, diaphoresis, Dyspnea on exertion, edema, irregular heart beat, left arm pain, lightheadedness, p alpitations, PND, syncope, others Gastrointestinal: denies: abdomen distended, abdominal pain, blood streaked bowels, constipated, diarrhea, dysphagia, difficulty swallowing, hematemesis, melena, nausea, poor appetite, poor fluid intake, rectal bleeding, rectal pain, vomiting, others Genitourinary: denies: abnormal vagina bleeding, burning, dyspareunia, dysuria, flank pain, frequency, hematuria, incontinence, pain, , vagina discharge, urgency, others Neurological: denies: dizziness, fainting, headache, left sided numbness, left sided weakness, numbness, paresthesia, pre-existing deficit, right sided numbness, right sided weakness, seizure, speech problems, tingling, tremors, weakness, others Musculoskeletal: reports: back pain; denies: gout, joint pain, joint swelling, muscle pain, muscle stiffness, neck pain, others Integumetry: denies: bruises, change in color, change in hair/nails, dryness, laceration, lesions, lumps, rash, wounds, others Allergic/Immunocompromised: denies: Difficulty Healing, Frequent Infections, Hives, Itching, others Hematologic/Lymphatic: denies: anemia, blood clots, easy bleeding, easy bruising, swollen glands, others Endocrine: denies: excessive hunger, excessive sweating, excessive thirst, excessive urination, flushing, intolerance to cold, intolerance to heat, unexplained weight gain, unexplained weight loss, others Psychiatric: denies: anxiety, bipolar disorder, depression, hopeless, panic disorder, schizophrenia, sleepless, suicidal, others All Other Systems: Reviewed and Negative Physical Exam General Appearance: No Apparent Distress HEENT: Normal ENT Inspection, Pharynx Normal, TMs Normal Neck: Full Range of Motion, Non-Tender, Normal, Normal Inspection Respiratory: Chest Non-Tender, Lungs Clear, No Accessory Muscle Use, No Respiratory Distress, Normal Breath Sounds Cardiovascular: No Edema, No JVD, No Murmur, No Gallop, Normal Peripheral Pulses, Regular Rate/Rhythm Breast Exam: Deferred Gastrointestinal: No Organomegaly, Non Tender, No Pulsatile Mass, Normal Bowel Sounds, Soft Genitalia: Deferred Pelvic: Deferred Rectal: Deferred Extremities: No calf tenderness, Normal capillary refill, Normal inspection, Normal range of motion, Non-tender, No pedal edema Musculoskeletal : Apperance: Normal Neurologic: Alert, rn homecare II-XII nml as Tested, No Motor Deficits, Normal Affect, Normal Mood, No Sensory Deficits Cerebellar Function: Normal Reflexes: Normal Skin: Dry, Normal Color, Warm Lymphatic: No Adenopathy Was a procedure done? Was a procedure done?: No Differential Dx Considerations may include: Electrolyte imbalance, hypercalcemia, UTI X-Ray, Labs, Meds, VS Vital Signs Date Time Temp Pulse Resp B/P (MAP) Pulse Ox O2 Delivery O2 Flow Rate FiO2 09/06/24 15:32 64 09/06/24 15:19 97.6 64 20 156/115 (129) 98 Lab Test 09/06/24 17:00 Range/Units White Blood Count 9.4 4.4-10.8 10^3/uL Red Blood Count 4.27 4.0-5.20 10^6/uL Hemoglobin 13.7 12.2-16.2 g/dL Hematocrit 38.9 36.0-46.0 % Mean Corpuscular Volume 91.2 80.0-100.0 fL Mean Corpuscular Hemoglobin 32.0 28.0-32.0 pg Mean Corpuscular Hemoglobin Concent 35.1 32.0-36.0 g/dL Red Cell Distribution Width 13.2 11.8-14.3 % Platelet Count 221 140-450 10^3/uL Mean Platelet Volume 8.7 6.9-10.8 fL Neutrophils (%) (Auto) 67.2 37.0-80.0 % Lymphocytes (%) (Auto) 19.5 10.0-50.0 % Monocytes (%) (Auto) 7.3 0.0-12.0 % Eosinophils (%) (Auto) 5.5 0.0-7.0 % Basophils (%) (Auto) 0.5 0.0-2.0 % Neutrophils # (Auto) 6.3 1.6-8.6 10 ^3/uL Lymphocytes # (Auto) 1.8 0.4-5.4 10 ^3/uL Monocytes # (Auto) 0.7 0-1.3 10 ^3/uL Eosinophils # (Auto) 0.5 0-0.8 10 ^3/uL Basophils # (Auto) 0 0-0.2 10 ^3/uL Nucleated Red Blood Cells 0.1 % Sodium Level 137 136-145 mmol/L Potassium Level 4.5 3.5-5.1 mmol/L Chloride Level 105 98-107 mmol/L Carbon Dioxide Level 29 20-31 mmol/L Anion Gap 3 L 5-15 Blood Urea Nitrogen 27 H 9-23 mg/dL Creatinine 1.59 H 0.550-1.02 mg/dL Glomerular Filtration Rate Calc 36 >90 mL/min BUN/Creatinine Ratio 17.0 10.0-20.0 Serum Glucose 163 H 74-106 mg/dL Calcium Level 11.2 H 8.7-10.4 mg/dL Total Bilirubin 0.4 0.2-1.0 mg/dL Aspartate Amino Transferase (AST) 15 13-40 U/L Alanine Aminotransferase (ALT) 12 7-40 U/L Alkaline Phosphatase 97 46-116 U/L Total Protein 7.2 5.7-8.2 g/dL Albumin 4.2 3.2-4.8 g/dL Exam: CT CT AB PEL WO CON-NO ORAL OR IV IMPRESSION: No evidence of hydronephrosis or nephrolithiasis. Moderate fecal retention throughout the colon. Correlate for constipation. Postsurgical changes in the sigmoid colon likely from prior resection. Fracture deformities of the bilateral posterior ribs as well as the L1 vertebral body of unknown chronicity, but likely subacute to chronic. The patient's calcium level is slightly elevated at 11.2 The patient's CBC and chemistry panel otherwise is within normal limits except for a BUN of 27 and a creatinine of 1.59 The patient was being discharged and will follow up with the primary care doctor The patient will return to the emergency department's the condition worsens. Images Reviewed?: Images reviewed and evaluated by me Time of 1ST Reevaluation: 17:25 Reevaluation 1ST: Unchanged Patient Education/Counseling: Diagnosis, Treatment, Prognosis, Need For Follow Up Family Education/Counseling: No Family Present Departure 1 Departure Time of Disposition: 19:24 Impression: Primary Impression: Hypercalcemia Disposition: 01 HOME / SELF CARE / HOMELESS Condition: Fair Discharged With: Self Critical Care Note Critical Care Time?: No Stability Stability form required: No Heart Score Heart Score: Heart Score Response (Comments) Value History N/A 0 EKG N/A 0 Age N/A 0 Risk Factors N/A 0 Troponin N/A 0 Total 0 I personally scribed for TREVIN KENNY MD ([email or web address]) on 09/06/24 at 17:06. Electronically submitted by Roberta Tejada ([email or web address]). I personally scribed for TREVIN KENNY MD ([email or web address]) on 09/06/24 at 19:24. Electronically submitted by Omid Doherty ([email or web address]). TREVIN KENNY MD Sep 06, 2024 17:06
[2024-09-06 17:29] LABS: Basophils # (auto) 0 10 ^3/uL (0-0.2); Basophils % (auto) 0.5 % (0.0-2.0); Eosinophils # (auto) 0.5 10 ^3/uL (0-0.8); Eosinophils % (auto) 5.5 % (0.0-7.0); Hematocrit 38.9 % (36.0-46.0); Hemoglobin 13.7 g/dL (12.2-16.2); Lymphocytes # (auto) 1.8 10 ^3/uL (0.4-5.4); Lymphocytes % (auto) 19.5 % (10.0-50.0); Mean Corpuscular Hgb Conc. 35.1 g/dL (32.0-36.0); Mean Corpuscular Volume 91.2 fL (80.0-100.0); Monocytes # (auto) 0.7 10 ^3/uL (0-1.3); Monocytes % (auto) 7.3 % (0.0-12.0); Neutrophils # (auto) 6.3 10 ^3/uL (1.6-8.6); Neutrophils % (auto) 67.2 % (37.0-80.0); Nucleated Red Blood Cells % 0.1 %; Platelet Count (auto) 221 10^3/uL (140-450); Red Blood Cells 4.27 10^6/uL (4.0-5.20); Red Cell Distribution Width 13.2 % (11.8-14.3); White Blood Cell 9.4 10^3/uL (4.4-10.8)
[2024-09-06 17:46] LABS: Alanine Aminotransferase 12 U/L (7-40); Albumin 4.2 g/dL (3.2-4.8); Alkaline Phosphatase 97 U/L (46-116); Anion Gap 3 (5-15); Aspartate Aminotransferase 15 U/L (13-40); Bilirubin, Total 0.4 mg/dL (0.2-1.0); Carbon Dioxide 29 mmol/L (20-31); Chloride 105 mmol/L (98-107); Potassium 4.5 mmol/L (3.5-5.1); Sodium 137 mmol/L (136-145); Total Protein 7.2 g/dL (5.7-8.2)
[2024-09-06 17:47] LABS: Blood Urea Nitrogen 27 mg/dL (9-23); Calcium 11.2 mg/dL (8.7-10.4); Glucose 163 mg/dL (74-106)
--- NOTE | 2024-09-06 18:54 | DVH ---
Exam: CT CT AB PEL WO CON-NO ORAL OR IV History: pain to flank area Comparison Study: None available at time of dictation. Technique: Multidetector spiral CT of the abdomen was performed from lung bases to pubic symphysis. Imaging was performed without IV contrast. Axial, coronal and sagittal multiplanar reformats were ob tained from the axial data set by the technologist. Radiation Dose : 1. Abdomen/Pelvis: CTDIvol 24 mGy, DLP 1374 mGy*cm. Findings: Evaluation of solid organs is limited due to lack of intravenous contrast use. Lung Bases: No acute or significant lung base finding. Normal heart size. No pleural or pericardial effusion. Liver: The liver is normal in size. No focal lesions. Gallbladder and Biliary Tree: Unremarkable Spleen: Unremarkable Pancreas: The pancreas is grossly normal in appearance. Adrenal Glands: Unremarkable Kidneys: Kidneys are grossly normal without calculi or hydronephrosis. Bladder: Grossly unremarkable for degree of distention. Bowel: The stomach is grossly normal in appearance. Moderate fecal retention throughout the colon.. The appendix is not visualized; however, no secondary findings of acute appendicitis identified. Ascites: Absent Lymphadenopathy: No mesenteric, retroperitoneal or periportal lymphadenopathy. Abdominal Wall and Mesentery: Inferior abdominal wall hernia demonstrating multiple loops of small cecilia wel without evidence of strangulation.. Vasculature: The visualized abdominal aorta is normal in size and caliber. Evaluation of abdominal a nd pelvic vessels is limited due to lack of intravenous contrast. Pelvic Organs: Unremarkable Musculoskeletal: No aggressive focal bony lesions, acute fractures or dislocation. Chronic appearing fracture deformity of the bilateral posterior ribs. Severe compression deformity at L1 of unknown chr onicity but likely subacute to chronic. 2 mm retropulsion at this level is also noted. IMPRESSION: No evidence of hydronephrosis or nephrolithiasis. Moderate fecal retention throughout the colon. Cor relate for constipation. Postsurgical changes in the sigmoid colon likely from prior resection. Fracture deformities of the bilateral posterior ribs as well as the L1 vertebral body of unknown mid level net developer nicity, but likely subacute to chronic. END IMPRESSION:
[2024-09-06 19:46] VITALS: TEMP 98.3
[2024-09-06 20:16] VITALS: BP 188/94; PULSE 66; RESP 18
[2024-09-06] MEDS: HYDROcodone-ACET 10/325MG TAB PO ONE (20:20)
[2024-09-06] MEDS: cloNIDine HCL 0.1 MG TAB PO ONE (20:20)
[2024-09-06 20:24] VITALS: O2SAT 98
== END 2024-09-06 20:24 | disposition home or self-care (01) ==
LOC: ER 15:07
DX: E83.52 Hypercalcemia (principal); F17.210 Nicotine dependence, cigarettes, uncomplicated; I10 Essential (primary) hypertension; M95.4 Acquired deformity of chest and rib; Z79.82 Long term (current) use of aspirin; Z79.899 Other long term (current) drug therapy; Z85.038 Personal history of other malignant neoplasm of large intestine; Z86.73 Personal history of transient ischemic attack (TIA), and cerebral infarction without residual deficits; Z90.49 Acquired absence of other specified parts of digestive tract; Z90.710 Acquired absence of both cervix and uterus
CPT/HCPCS: 36415; 74176; 80053; 85025; 93005